=== PATIENT | female | born 1995 | race African-American/Black ===

== ENCOUNTER 2018-08-14 02:30 | Inpatient (IN) | payer OTHER, SELFPAY ==
[2018-08-14] VITALS (14 sets, daily range): BP systolic 134–179; BP diastolic 77–120; PULSE 71–124; RESP 12–22; TEMP 36.3–37; O2SAT 97–100; BMI 34.4
--- NOTE | 2018-08-14 02:50 | DI.RAD.S_ITS ---
PROCEDURE: XR ACUTE ABDOMEN SERIES INDICATIONS: Abdominal pain TECHNIQUE: One view chest and two views of the abdomen were acquired. COMPARISON: None. FINDINGS: Surgical changes and devices: None. Chest: Lungs are clear. Heart size is normal. No pleural effusions. No pneumoperitoneum. Abdomen: Bowel gas pattern is nonspecific with paucity of small bowel gas and distal colonic gas. Moderate amount of stool in proximal colon. No suspicious calcifications. Visualized solid organ contours appear normal. Bones: No suspicious bony lesions. IMPRESSION: Nonspecific bowel gas pattern. Dictated by: Tom Corey M.D. on 08/14/2018 at 8:43 Approved by: Tom Corey M.D. on 08/14/2018 at 8:44
--- NOTE | 2018-08-14 02:53 | ED.NAVMDI ---
HPI - Nausea/Vomiting/Diarrhea General Chief complaint: Nausea/Vomiting/Diarrhea Stated complaint: abdominal pain nausea vomiting Time Seen by Provider: 08/14/18 02:33 Source: patient Mode of arrival: ambulatory Limitations: no limitations History of Present Illness HPI Narrative: 22-year-old female nonsmoker with benign medical history presents with a chief complaint gradually worsening abdominal pain over the course of the day. She states that started this morning with some generalized abdominal cramping but is developed into severe epigastric discomfort over the course of this evening. She has had nausea vomiting and increased pain with any motion. She admits to some improvement with remaining still. She denies recent travel or use of antibiotics. She has never had the same. Patient drinks a few beers every other day MD complaint: nausea, vomiting and abdominal pain Onset (ago): hour(s) Description of Vomiting: food contents Description of Diarrhea: none Associated Abdominal Pain: Yes Location of pain: epigastric Severity: severe Quality: cramping and stabbing Pain Consistency: constant Relieving factors: none Exacerbating factors: movement Associated symptoms: diaphoresis and fever/chills Related Data Home Medications Medication Instructions Recorded Confirmed No Known Home Medications 08/14/18 08/14/18 Allergies Allergy/AdvReac Type Severity Reaction Status Date / Time No Known Drug Allergies Allergy Verified 08/14/18 02:45 Review of Systems Constitutional Denies chills, Denies fever(s), Denies lethargy and Denies weakness Eyes Denies change in vision, Denies eye discharge, Denies irritation and Denies loss of vision ENT Ears, Nose, Mouth, and Throat: Denies change in voice, Denies neck pain and Denies sore throat Cardiovascular Denies chest pain, Denies irregular heart rhythm, Denies lightheadedness, Denies palpitations, Denies dyspnea, Denies dyspnea on exertion and Denies orthopnea Respiratory Denies cough, Denies dyspnea, Denies dyspnea on exertion and Denies wheezing Gastrointestinal Gastrointestinal: Reports abdominal pain, Denies change in bowel habits, Denies diarrhea, Reports nausea and Reports vomiting Genitourinary Denies hematuria, Denies flank pain, Denies urinary incontinence and Denies urinary urgency Musculoskeletal Denies neck pain Integumentary/Breasts Denies pruritus, Denies erythema, Denies rash and Denies wounds Neurologic Denies confusion, Denies loss of vision and Denies weakness Psychiatric Denies anxiety, Denies confusion, Denies depression, Denies homicidal ideation and Denies suicidal ideation Endocrine Denies palpitations Hematologic/Lymphatic Denies easy bruising Allergic/Immunologic Denies wheezing [facility] Medical History Hypertension (Acute) Ruptured ovarian cyst (Acute) Surgical History Fractured fibula (Acute) Social History household members: significant other Smoking Status: Former smoker Social History household members: significant other Smoking Status: Former smoker Exam Narrative Exam Narrative: GENERAL: 22F is obviously quite uncomfortable, obese and diaphoretic, clutching her upper abdomen HEAD: Atraumatic. Normocephalic. No temporal or scalp tenderness. EYES: Pupils equal round and reactive. Extraocular motions intact. No scleral icterus. No injection or drainage. ENT: Nose without bleeding, purulent drainage or septal hematoma. Throat without erythema, tonsillar hypertrophy or exudate. Uvula midline. Airway patent. NECK: Trachea midline. No JVD or lymphadenopathy. Supple, nontender, no meningeal signs. CARDIOVASCULAR: Regular rate and rhythm without murmurs, gallops, or rubs. RESPIRATORY: Clear to auscultation. Breath sounds equal bilaterally. No wheezes, rales, or rhonchi. GASTROINTESTINAL: Abdomen soft, severe tenderness across the upper abdomen, nondistended. No hepato-splenomegaly, or palpable masses. No guarding. EXTREMITIES: No clubbing, cyanosis, or edema. No joint tenderness, effusion, or edema noted. BACK: Nontender without deformity or crepitance. No flank tenderness. NEURO: AOx3. SKIN: No rash or erythema. Initial Vital Signs Initial Vital Signs: Vital Signs Temperature 97.6 F 08/14/18 02:40 Pulse Rate 82 08/14/18 02:40 Respiratory Rate 22 08/14/18 02:40 Blood Pressure 153/111 H 08/14/18 02:40 Pulse Oximetry 100 08/14/18 02:40 Course Orders Ordered: ED Orders 08/14/18 17:20 Basic Metabolic Panel Routine Magnesium Routine 08/15/18 05:00 Basic Metabolic Panel DAILY Complete Blood Count AUTO DIFF DAILY Lipase DAILY 08/16/18 05:00 Basic Metabolic Panel DAILY Complete Blood Count AUTO DIFF DAILY Lipase DAILY 08/17/18 05:00 Basic Metabolic Panel DAILY 08/18/18 05:00 Basic Metabolic Panel DAILY Enoxaparin Sodium (Lovenox) 40 mg SUBCUT DAILY [facility] Last Admin: 08/14/18 07:56 Dose: 40 mg Hydromorphone HCl (Dilaudid) 1 mg IV Q3HR PRN PRN Reason: Pain, Moderate (4-6) Last Admin: 08/14/18 14:52 Dose: 1 mg Admin: 08/14/18 12:01 Dose: 1 mg Admin: 08/14/18 09:12 Dose: 1 mg Admin: 08/14/18 06:27 Dose: 1 mg Sodium Chloride (Normal Saline 0.9%) 1,000 mls @ 150 mls/hr IV CONT [facility] Last Admin: 08/14/18 10:44 Dose: 150 mls/hr Infusion: 08/14/18 10:44 Dose: 150 mls/hr Admin: 08/14/18 06:31 Dose: 150 mls/hr Influenza Virus Vaccine (Flu Vaccine) 0.5 ml IM .ONCE ONE Stop: 08/15/18 09:01 Labetalol HCl (Trandate) 100 mg PO BID [facility] Last Admin: 08/14/18 07:54 Dose: 100 mg Labetalol HCl (Trandate) 10 mg IV Q4HR PRN PRN Reason: Hypertension Naloxone HCl (Narcan) 0.2 mg IV Q2MIN PRN PRN Reason: Opiate Reversal Ondansetron HCl (Zofran) 4 mg IV Q6H [facility] Discontinued Medications Hydromorphone HCl (Dilaudid) 1 mg IV Q15M PRN PRN Reason: Pain, Severe (7-10) Last Admin: 08/14/18 04:48 Dose: 1 mg Admin: 08/14/18 03:50 Dose: 1 mg Admin: 08/14/18 03:15 Dose: 1 mg Hydromorphone HCl (Dilaudid) 1 mg IV NOW ONE Stop: 08/14/18 16:58 Last Admin: 08/14/18 16:30 Dose: 1 mg Sodium Chloride (Normal Saline 0.9%) 1,000 mls @ 1,000 mls/hr IV BOLUS ONE Stop: 08/14/18 03:47 Last Infusion: 08/14/18 05:11 Dose: 0 mls/hr Admin: 08/14/18 03:15 Dose: 1,000 mls/hr Sodium Chloride (Normal Saline 0.9%) 1,000 mls @ 1,000 mls/hr IV BOLUS ONE Stop: 08/14/18 06:29 Last Admin: 08/14/18 05:33 Dose: 1,000 mls/hr Influenza Virus Vaccine (Flu Vaccine) 0.5 ml IM .ONCE ONE Stop: 08/14/18 06:01 Last Admin: 08/14/18 11:48 Dose: Not Given Ondansetron HCl (Zofran) 4 mg IV NOW ONE Stop: 08/14/18 02:49 Last Admin: 08/14/18 03:15 Dose: 4 mg Ondansetron HCl (Zofran) 4 mg IV Q8HR PRN PRN Reason: Nausea And Vomiting Last Admin: 08/14/18 06:27 Dose: 4 mg Ondansetron HCl (Zofran) 4 mg IV Q6HR [facility] Last Admin: 08/14/18 14:52 Dose: 4 mg Vital Signs - 8 hr 08/14/18 12:00 08/14/18 16:00 08/14/18 16:11 Temperature 98.2 F 98.1 F Pulse Rate 77 71 Respiratory Rate 16 18 Blood Pressure 151/97 H 146/98 H Pulse Oximetry 100 97 100 MDM - Nausea/Vomiting/Diarrhea Lab Data Result diagrams: 08/14/18 03:10 08/14/18 17:20 Lab Results 08/14/18 08/14/18 08/14/18 Range/Units 03:10 03:10 03:25 WBC 12.5 H (4.5-11.0) X10^3/uL RBC 5.65 H (4.0-5.2) X10^6/uL Hgb 17.8 H (12.0-16.0) g/dL Hct 51.8 H (36-46) % MCV 91.7 (80-100) fL MCH 31.6 (26-34) PG MCHC 34.4 (30-36) % RDW 12.8 (11.6-14.8) % Plt Count 314 (150-400) X10^3/uL Neut % (Auto) 84.7 H (50-75) % Lymph % (Auto) 9.1 L (25-40) % [place] % (Auto) 4.6 (3-14) % Eos % (Auto) 1.3 L (2-4) % Baso % (Auto) 0.3 (0-2) % Neut # (Auto) 83978 H (8070-7405) /uL Lymph # (Auto) 1100 (5000-8626) /uL [place] # (Auto) 600 (0-900) /uL Eos # (Auto) 200 (0-450) /uL Baso # (Auto) 0 (0-100) /uL Sodium 136 L (137-145) mmol/L Potassium 3.5 (3.4-5.1) mmol/L Chloride 96 L (98-107) mmol/L Carbon Dioxide 25 (22-32) mmol/L BUN 10 (7-17) mg/dL Creatinine 0.80 (0.52-1.04) mg/dL Estimated GFR > 60.0 (>60) mL/min BUN/Creatinine Ratio 12.5 (6-22) Glucose 162 H (70-100) mg/dL Hemoglobin A1c (4.0-6.0) % Calcium 9.6 (8.4-10.2) mg/dL Magnesium (1.6-2.3) mg/dL Total Bilirubin 1.0 (0.2-1.3) mg/dL AST 63 H (14-36) IU/L ALT 70 H (9-52) IU/L Alkaline Phosphatase 121 (38-126) U/L Total Protein 9.1 H (6.3-8.2) g/dL Albumin 5.0 (3.5-5.0) g/dL Globulin 4.1 (1.7-4.1) g/dL Albumin/Globulin Ratio 1.2 (1.0-2.8) Triglycerides (35-150) mg/dL Cholesterol (140-199) mg/dL LDL Cholesterol, Calc (<100) mg/dL HDL Cholesterol (40-60) mg/dL Lipase 30296 H (23-300) U/L Urine RBC None seen (0-5/HPF) Urine WBC 0-1/hpf (0-5/HPF) Ur Squamous Epith Cells 0-1 /hpf Urine Bacteria Moderate (10-30) H (None) Hyaline Casts 1-5/lpf (None) Urine Mucus 2+ H (Negative) Ur Culture Indicated? Cult not indicated 08/14/18 08/14/18 08/14/18 Range/Units 08:33 08:33 17:20 WBC (4.5-11.0) X10^3/uL RBC (4.0-5.2) X10^6/uL Hgb (12.0-16.0) g/dL Hct (36-46) % MCV (80-100) fL MCH (26-34) PG MCHC (30-36) % RDW (11.6-14.8) % Plt Count (150-400) X10^3/uL Neut % (Auto) (50-75) % Lymph % (Auto) (25-40) % [place] % (Auto) (3-14) % Eos % (Auto) (2-4) % Baso % (Auto) (0-2) % Neut # (Auto) (0682-7193) /uL Lymph # (Auto) (4662-2209) /uL [place] # (Auto) (0-900) /uL Eos # (Auto) (0-450) /uL Baso # (Auto) (0-100) /uL Sodium 134 L (137-145) mmol/L Potassium 3.6 (3.4-5.1) mmol/L Chloride 101 (98-107) mmol/L Carbon Dioxide 24 (22-32) mmol/L BUN 8 (7-17) mg/dL Creatinine 0.50 L (0.52-1.04) mg/dL Estimated GFR > 60.0 (>60) mL/min BUN/Creatinine Ratio 16.0 (6-22) Glucose 114 H (70-100) mg/dL Hemoglobin A1c 4.8 (4.0-6.0) % Calcium 7.9 L (8.4-10.2) mg/dL Magnesium 1.8 (1.6-2.3) mg/dL Total Bilirubin (0.2-1.3) mg/dL AST (14-36) IU/L ALT (9-52) IU/L Alkaline Phosphatase (38-126) U/L Total Protein (6.3-8.2) g/dL Albumin (3.5-5.0) g/dL Globulin (1.7-4.1) g/dL Albumin/Globulin Ratio (1.0-2.8) Triglycerides 171 H (35-150) mg/dL Cholesterol 224 H (140-199) mg/dL LDL Cholesterol, Calc 111 H (<100) mg/dL HDL Cholesterol 79 H (40-60) mg/dL Lipase (23-300) U/L Urine RBC (0-5/HPF) Urine WBC (0-5/HPF) Ur Squamous Epith Cells Urine Bacteria (None) Hyaline Casts (None) Urine Mucus (Negative) Ur Culture Indicated? Point of Care Testing Test Results Negative Urine Dip Bedside Urine Glucose Negative Bedside Urine Bilirubin - Negative Bedside Urine Ketone ++ 40 Urine Specific [place] 1.025 Bedside Urine Occult Blood - Negative Bedside Urine pH 6 Bedside Urine Protein + 30 Bedside Urine Urobilinogen - Negative Bedside Urine Nitrite - Negative Bedside Urine Leukocytes - Negative Esterase Imaging Data US - abdomen: Radiologist's impression: [place] [address] Ultrasound Report Signed Patient: Yasmine Pinzon KMR#: [id number] : 1995Acct:[id number] Age/Sex: 22 / FDate of Service: 08/14/18 Loc: FR919-8 Accession Number: [id number] Procedure: US abdomen complete Ordering Provider: Shaq Chavarria D.O. PROCEDURE: US ABDOMEN COMPLETE INDICATIONS: EPIGASTRIC PAIN; ELEVATED LIPASE TECHNIQUE: Real-time scanning was performed of the abdominal and retroperitoneal organs, with image documentation. COMPARISON: None. FINDINGS: Liver: Liver is normal in size and demonstrates diffuse increased echotexture. Gallbladder: No gallstones. No gallbladder wall thickening, pericholecystic fluid or sonographic Koroma's sign. Biliary ducts: Intrahepatic bile ducts are non-dilated. Extrahepatic bile duct caliber measures 5.1 mm. Normal is 6-7 mm or less in diameter, or 10 mm or less post-cholecystectomy. Pancreas: Visualized portions of the pancreas are sonographically normal. Spleen: Spleen is normal in size and homogeneous in echotexture. Kidneys: Kidneys are normal in size and echotexture. Right kidney measures 12.1 cm long; left kidney measures 11.5 cm long. No hydronephrosis or nephrolithiasis. No solid masses. Aorta: Visualized aorta is normal in caliber at less than 3 cm. Iliacs: Proximal common iliac arteries are obscured by overlying bowel gas. IVC: Intrahepatic inferior vena cava is patent. Miscellaneous: No free abdominal fluid. IMPRESSION: 1. Diffusely increased hepatic echotexture. This finding is most likely secondary to hepatic fatty infiltration although other hepatocellular disease may have a similar appearance. Recommend clinical correlation. Dictated by: Tom Corey M.D. on 08/14/2018 at 9:06 Approved by: Tom Corey M.D. on 08/14/2018 at 9:07 CT scan - abdomen: Radiologist's impression: [facility] DATE TYPE STATUS AUTHOR Hx 08/14/18 04:00 Ernie Corey 08/14/18 03:38 Ernie Corey 08/14/18 02:50 Ernie CoreyYasmine Sue Feliberto, F1995 [facility] [place], 227 -1 170.18cm 99.79kg BMI: 34.5kg/m? Search Chart ONSET Today 16:11 JeromyYasmine Sue 22 F 1995 [place] [address] CT Scan Report Signed Patient: Yasmine Pinzon KMR#: [id number] : 1995Acct:[id number] Age/Sex: 22 / FDate of Service: 08/14/18 Loc: II731-4 Accession Number: [id number] Procedure: CT abdomen pelvis w con Ordering Provider: Shaq Chavarria D.O. PROCEDURE: CT ABDOMEN PELVIS W CON INDICATIONS: severe epigastric pain, vomiting TECHNIQUE: After the administration of intravenous contrast, 5 mm thick sections acquired from the diaphragm to the symphysis. 5 mm coronal and sagittal reformats were acquired. For radiation dose reduction, the following was used: automated exposure control, adjustment of mA and/or kV according to patient size. COMPARISON: [facility], , US ABDOMEN COMPLETE, 08/14/2018, 4:48. FINDINGS: Image quality: Excellent. ABDOMEN: Lung bases: Lung bases are clear. Heart size is normal. Solid organs: There is peripancreatic stranding and a small amount of ascites around the pancreas consistent with acute pancreatitis. There is diffuse hepatic fatty infiltration. A 1.8 x 2.6 cm hypodensity in the left hepatic lobe adjacent to the falciform ligament is compatible with focal fat. Liver is normal in size and enhancement. Gallbladder is normal. Biliary system is non dilated. Spleen is normal in size and enhancement. No adrenal nodules. Kidneys demonstrate normal size and enhancement, without hydronephrosis. Peritoneum and bowel: Bowel loops demonstrate normal wall thickness and caliber. A few colonic diverticula are noted in transverse colon. Normal appendix. No free fluid or air. Nodes and vessels: No retroperitoneal or mesenteric adenopathy by size criteria. Aorta and inferior vena cava are normal in size. Miscellaneous: No ventral hernias. PELVIS: Genitourinary: Bladder wall thickness is normal. Uterus is normal. There is a 2 cm cyst in the left ovary, presumably a dominant follicle. Right ovary is unremarkable. There is a small amount of free fluid in the cul-de-sac. Miscellaneous: No inguinal hernias or adenopathy. Bones: No suspicious bony lesions. No vertebral body compression fractures. IMPRESSION: 1. There is peripancreatic stranding and a small amount of ascites around the pancreas consistent with acute pancreatitis. 2. Hepatic steatosis. 3. Mild diverticulosis without acute diverticulitis. Dictated by: Tom Corey M.D. on 08/14/2018 at 8:35 Approved by: Tom Corey M.D. on 08/14/2018 at 8:40 [facility] Narrative Medical decision making narrative: 22-year-old regular drinker presents with severe epigastric pain. Initial considerations were certainly of pancreatitis and gallbladder disease but lack of radiation to her back and symptoms across much of her upper abdomen and even left lower created a slightly cloudy picture. In the end it is clear she has isolated pancreatitis in the absence biliary disease, the likely etiology being alcohol. Patient requires hospitalization as she has required 3 doses of IV pain meds and will not tolerate oral medications or hydration. Discharge Plan Departure Patient Disposition: Admitted As Inpatient Clinical Impression: Acute pancreatitis Qualifiers: Pancreatitis type: alcohol induced Acute pancreatitis complication: unspecified Qualified Code(s): K85.20 - Alcohol induced acute pancreatitis without necrosis or infection Discharge Date/Time: 08/14/18 05:59 Interventions: ED Discharge Assessment Last Done: 08/14/18 05:55 Admit Date/Time: 08/14/18 05:32 Admit Provider: Hayes Hyde
--- NOTE | 2018-08-14 03:00 | ED_ITS ---
HPI - Nausea/Vomiting/Diarrhea General Chief complaint: Nausea/Vomiting/Diarrhea Stated complaint: abdominal pain nausea vomiting Time Seen by Provider: 08/14/18 02:33 Source: patient Mode of arrival: ambulatory Limitations: no limitations History of Present Illness HPI Narrative: 22-year-old female nonsmoker with benign medical history presents with a chief complaint gradually worsening abdominal pain over the course of the day. She states that started this morning with some generalized abdominal cramping but is developed into severe epigastric discomfort over the course of this evening. She has had nausea vomiting and increased pain with any motion. She admits to some improvement with remaining still. She denies recent travel or use of antibiotics. She has never had the same. Patient drinks a few beers every other day MD complaint: nausea, vomiting and abdominal pain Onset (ago): hour(s) Description of Vomiting: food contents Description of Diarrhea: none Associated Abdominal Pain: Yes Location of pain: epigastric Severity: severe Quality: cramping and stabbing Pain Consistency: constant Relieving factors: none Exacerbating factors: movement Associated symptoms: diaphoresis and fever/chills Related Data Home Medications Medication Instructions Recorded Confirmed No Known Home Medications 08/14/18 08/14/18 Allergies Allergy/AdvReac Type Severity Reaction Status Date / Time No Known Drug Allergies Allergy Verified 08/14/18 02:45 Review of Systems Constitutional Denies chills, Denies fever(s), Denies lethargy and Denies weakness Eyes Denies change in vision, Denies eye discharge, Denies irritation and Denies loss of vision ENT Ears, Nose, Mouth, and Throat: Denies change in voice, Denies neck pain and Denies sore throat Cardiovascular Denies chest pain, Denies irregular heart rhythm, Denies lightheadedness, Denies palpitations, Denies dyspnea, Denies dyspnea on exertion and Denies orthopnea Respiratory Denies cough, Denies dyspnea, Denies dyspnea on exertion and Denies wheezing Gastrointestinal Gastrointestinal: Reports abdominal pain, Denies change in bowel habits, Denies diarrhea, Reports nausea and Reports vomiting Genitourinary Denies hematuria, Denies flank pain, Denies urinary incontinence and Denies urinary urgency Musculoskeletal Denies neck pain Integumentary/Breasts Denies pruritus, Denies erythema, Denies rash and Denies wounds Neurologic Denies confusion, Denies loss of vision and Denies weakness Psychiatric Denies anxiety, Denies confusion, Denies depression, Denies homicidal ideation and Denies suicidal ideation Endocrine Denies palpitations Hematologic/Lymphatic Denies easy bruising Allergic/Immunologic Denies wheezing [facility] Medical History Hypertension (Acute) Ruptured ovarian cyst (Acute) Surgical History Fractured fibula (Acute) Social History household members: significant other Smoking Status: Former smoker Social History household members: significant other Smoking Status: Former smoker Exam Narrative Exam Narrative: GENERAL: 22F is obviously quite uncomfortable, obese and di aphoretic, clutching her upper abdomen HEAD: Atraumatic. Normocephalic. No temporal or scalp tenderness. EYES: Pupils equal round and reactive. Extraocular motions intact. No scleral icterus. No injection or drainage. ENT: Nose without bleeding, purulent drainage or septal hematoma. Throat without erythema, tonsillar hypertrophy or exudate. Uvula midline. Airway patent. NECK: Trachea midline. No JVD or lymphadenopathy. Supple, nontender, no meningeal signs. CARDIOVASCULAR: Regular rate and rhythm without murmurs, gallops, or rubs. RESPIRATORY: Clear to auscultation. Breath sounds equal bilaterally. No wheezes, rales, or rhonchi. GASTROINTESTINAL: Abdomen soft, severe tenderness across the upper abdomen, nondistended. No hepato-splenomegaly, or palpable masses. No guarding. EXTREMITIES: No clubbing, cyanosis, or edema. No joint tenderness, effusion, or edema noted. BACK: Nontender without deformity or crepitance. No flank tenderness. NEURO: AOx3. SKIN: No rash or erythema. Initial Vital Signs Initial Vital Signs: Vital Signs Temperature 97.6 F 08/14/18 02:40 Pulse Rate 82 08/14/18 02:40 Respiratory Rate 22 08/14/18 02:40 Blood Pressure 153/111 H 08/14/18 02:40 Pulse Oximetry 100 08/14/18 02:40 Course Orders Ordered: ED Orders 08/14/18 17:20 Basic Metabolic Panel Routine Magnesium Routine 08/15/18 05:00 Basic Metabolic Panel DAILY Complete Blood Count AUTO DIFF DAILY Lipase DAILY 08/16/18 05:00 Basic Metabolic Panel DAILY Complete Blood Count AUTO DIFF DAILY Lipase DAILY 08/17/18 05:00 Basic Metabolic Panel DAILY 08/18/18 05:00 Basic Metabolic Panel DAILY Enoxaparin Sodium (Lovenox) 40 mg SUBCUT DAILY [facility] Last Admin: 08/14/18 07:56 Dose: 40 mg Hydromorphone HCl (Dilaudid) 1 mg IV Q3HR PRN PRN Reason: Pain, Moderate (4-6) Last Admin: 08/14/18 14:52 Dose: 1 mg Admin: 08/14/18 12:01 Dose: 1 mg Admin: 08/14/18 09:12 Dose: 1 mg Admin: 08/14/18 06:27 Dose: 1 mg Sodium Chloride (Normal Saline 0.9%) 1,000 mls @ 150 mls/hr IV CONT [facility] Last Admin: 08/14/18 10:44 Dose: 150 mls/hr Infusion: 08/14/18 10:44 Dose: 150 mls/hr Admin: 08/14/18 06:31 Dose: 150 mls/hr Influenza Virus Vaccine (Flu Vaccine) 0.5 ml IM .ONCE ONE Stop: 08/15/18 09:01 Labetalol HCl (Trandate) 100 mg PO BID [facility] Last Admin: 08/14/18 07:54 Dose: 100 mg Labetalol HCl (Trandate) 10 mg IV Q4HR PRN PRN Reason: Hypertension Naloxone HCl (Narcan) 0.2 mg IV Q2MIN PRN PRN Reason: Opiate Reversal Ondansetron HCl (Zofran) 4 mg IV Q6H [facility] Discontinued Medications Hydromorphone HCl (Dilaudid) 1 mg IV Q15M PRN PRN Reason: Pain, Severe (7-10) Last Admin: 08/14/18 04:48 Dose: 1 mg Admin: 08/14/18 03:50 Dose: 1 mg Admin: 08/14/18 03:15 Dose: 1 mg Hydromorphone HCl (Dilaudid) 1 mg IV NOW ONE Stop: 08/14/18 16:58 Last Admin: 08/14/18 16:30 Dose: 1 mg Sodium Chloride (Normal Saline 0.9%) 1,000 mls @ 1,000 mls/hr IV BOLUS ONE Stop: 08/14/18 03:47 Last Infusion: 08/14/18 05:11 Dose: 0 mls/hr Admin: 08/14/18 03:15 Dose: 1,000 mls/hr Sodium Chloride (Normal Saline 0.9%) 1,000 mls @ 1,000 mls/hr IV BOLUS ONE Stop: 08/14/18 06:29 Last Admin: 08/14/18 05:33 Dose: 1,000 mls/hr Influenza Virus Vaccine (Flu Vaccine) 0.5 ml IM .ONCE ONE Stop: 08/14/18 06:01 Last Admin: 08/14/18 11:48 Dose: Not Given Ondansetron HCl (Zofran) 4 mg IV NOW ONE Stop: 08/14/18 02:49 Last Admin: 08/14/18 03:15 Dose: 4 mg Ondansetron HCl (Zofran) 4 mg IV Q8HR PRN PRN Reason: Nausea And Vomiting Last Admin: 08/14/18 06:27 Dose: 4 mg Ondansetron HCl (Zofran) 4 mg IV Q6HR [facility] Last Admin: 08/14/18 14:52 Dose: 4 mg Vital Signs - 8 hr 08/14/18 12:00 08/14/18 16:00 08/14/18 16:11 Temperature 98.2 F 98.1 F Pulse Rate 77 71 Respiratory Rate 16 18 Blood Pressure 151/97 H 146/98 H Pulse Oximetry 100 97 100 MDM - Nausea/Vomiting/Diarrhea Lab Data Result diagrams: 08/14/18 03:10 08/14/18 17:20 Lab Results 08/14/18 08/14/18 08/14/18 Range/Units 03:10 03:10 03:25 WBC 12.5 H (4.5-11.0) X10^3/uL RBC 5.65 H (4.0-5.2) X10^6/uL Hgb 17.8 H (12.0-16.0) g/dL Hct 51.8 H (36-46) % MCV 91.7 (80-100) fL MCH 31.6 (26-34) PG MCHC 34.4 (30-36) % RDW 12.8 (11.6-14.8) % Plt Count 314 (150-400) X10^3/uL Neut % (Auto) 84.7 H (50-75) % Lymph % (Auto) 9.1 L (25-40) % Cascade % (Auto) 4.6 (3-14) % Eos % (Auto) 1.3 L (2-4) % Baso % (Auto) 0.3 (0-2) % Neut # (Auto) 02301 H (8288-9896) /uL Lymph # (Auto) 1100 (4449-1694) /uL Cascade # (Auto) 600 (0-900) /uL Eos # (Auto) 200 (0-450) /uL Baso # (Auto) 0 (0-100) /uL Sodium 136 L (137-145) mmol/L Potassium 3.5 (3.4-5.1) mmol/L Chloride 96 L (98-107) mmol/L Carbon Dioxide 25 (22-32) mmol/L BUN 10 (7-17) mg/dL Creatinine 0.80 (0.52-1.04) mg/dL Estimated GFR > 60.0 (>60) mL/min BUN/Creatinine Ratio 12.5 (6-22) Glucose 162 H (70-100) mg/dL Hemoglobin A1c (4.0-6.0) % Calcium 9.6 (8.4-10.2) mg/dL Magnesium (1.6-2.3) mg/dL Total Bilirubin 1.0 (0.2-1.3) mg/dL AST 63 H (14-36) IU/L ALT 70 H (9-52) IU/L Alkaline Phosphatase 121 (38-126) U/L Total Protein 9.1 H (6.3-8.2) g/dL Albumin 5.0 (3.5-5.0) g/dL Globulin 4.1 (1.7-4.1) g/dL Albumin/Globulin Ratio 1.2 (1.0-2.8) Triglycerides (35-150) mg/dL Cholesterol (140-199) mg/dL LDL Cholesterol, Calc (<100) mg/dL HDL Cholesterol (40-60) mg/dL Lipase 73080 H (23-300) U/L Urine RBC None seen (0-5/HPF) Urine WBC 0-1/hpf (0-5/HPF) Ur Squamous Epith Cells 0-1 /hpf Urine Bacteria Moderate (10-30) H (None) Hyaline Casts 1-5/lpf (None) Urine Mucus 2+ H (Negative) Ur Culture Indicated? Cult not indicated 08/14/18 08/14/18 08/14/18 Range/Units 08:33 08:33 17:20 WBC (4.5-11.0) X10^3/uL RBC (4.0-5.2) X10^6/uL Hgb (12.0-16.0) g/dL Hct (36-46) % MCV (80-100) fL MCH (26-34) PG MCHC (30-36) % RDW (11.6-14.8) % Plt Count (150-400) X10^3/uL Neut % (Auto) (50-75) % Lymph % (Auto) (25-40) % Cascade % (Auto) (3-14) % Eos % (Auto) (2-4) % Baso % (Auto) (0-2) % Neut # (Auto) (2909-6134) /uL Lymph # (Auto) (6024-7009) /uL Cascade # (Auto) (0-900) /uL Eos # (Auto) (0-450) /uL Baso # (Auto) (0-100) /uL Sodium 134 L (137-145) mmol/L Potassium 3.6 (3.4-5.1) mmol/L Chloride 101 (98-107) mmol/L Carbon Dioxide 24 (22-32) mmol/L BUN 8 (7-17) mg/dL Creatinine 0.50 L (0.52-1.04) mg/dL Estimated GFR > 60.0 (>60) mL/min BUN/Creatinine Ratio 16.0 (6-22) Glucose 114 H (70-100) mg/dL Hemoglobin A1c 4.8 (4.0-6.0) % Calcium 7.9 L (8.4-10.2) mg/dL Magnesium 1.8 (1.6-2.3) mg/dL Total Bilirubin (0.2-1.3) mg/dL AST (14-36) IU/L ALT (9-52) IU/L Alkaline Phosphatase (38-126) U/L Total Protein (6.3-8.2) g/dL Albumin (3.5-5.0) g/dL Globulin (1.7-4.1) g/dL Albumin/Globulin Ratio (1.0-2.8) Triglycerides 171 H (35-150) mg/dL Cholesterol 224 H (140-199) mg/dL LDL Cholesterol, Calc 111 H (<100) mg/dL HDL Cholesterol 79 H (40-60) mg/dL Lipase (23-300) U/L Urine RBC (0-5/HPF) Urine WBC (0-5/HPF) Ur Squamous Epith Cells Urine Bacteria (None) Hyaline Casts (None) Urine Mucus (Negative) Ur Culture Indicated? Point of Care Testing Test Results Negative Urine Dip Bedside Urine Glucose Negative Bedside Urine Bilirubin - Negative Bedside Urine Ketone ++ 40 Urine Specific Hamilton 1.025 Bedside Urine Occult Blood - Negative Bedside Urine pH 6 Bedside Urine Protein + 30 Bedside Urine Urobilinogen - Negative Bedside Urine Nitrite - Negative Bedside Urine Leukocytes - Negative Esterase Imaging Data US - abdomen: Radiologist's impression: [place] [address] Ultrasound Report Signed Patient: Yasmine Pinzon KMR#: [id number] : 1995Acct:[id number] Age/Sex: 22 / FDate of Service: 08/14/18 Loc: VE775-8 Accession Number: [id number] Procedure: US abdomen complete Ordering Provider: Shaq Chavarria D.O. PROCEDURE: US ABDOMEN COMPLETE INDICATIONS: EPIGASTRIC PAIN; ELEVATED LIPASE TECHNIQUE: Real-time scanning was performed of the abdominal and retroperitoneal organs, with image documentation. COMPARISON: None. FINDINGS: Liver: Liver is normal in size and demonstrates diffuse increased echotexture. Gallbladder: No gallstones. No gallbladder wall thickening, pericholecystic fluid or sonographic Koroma's sign. Biliary ducts: Intrahepatic bile ducts are non-dilated. Extrahepatic bile duct caliber measures 5.1 mm. Normal is 6-7 mm or less in diameter, or 10 mm or less post-cholecystectomy. Pancreas: Visualized portions of the pancreas are sonographically normal. Spleen: Spleen is normal in size and homogeneous in echotexture. Kidneys: Kidneys are normal in size and echotexture. Right kidney measures 12.1 cm long; left kidney measures 11.5 cm long. No hydronephrosis or nephrolithiasis. No solid masses. Aorta: Visualized aorta is normal in caliber at less than 3 cm. Iliacs: Proximal common iliac arteries are obscured by overlying bowel gas. IVC: Intrahepatic inferior vena cava is patent. Miscellaneous: No free abdominal fluid. IMPRESSION: 1. Diffusely increased hepatic echotexture. This finding is most likely secondary to hepatic fatty infiltration although other hepatocellular disease may have a similar appearance. Recommend clinical correlation. Dictated by: Tom Corey M.D. on 08/14/2018 at 9:06 Approved by: Tom Corey M.D. on 08/14/2018 at 9:07 CT scan - abdomen: Radiologist's impression: [facility] DATE TYPE STATUS AUTHOR Hx 08/14/18 04:00 Ernie Corey 08/14/18 03:38 Ernie Corey 08/14/18 02:50 Ernie CoreyYasmine Sue Feliberto, F1995 [facility] [place], 227 -1 170.18cm 99.79kg BMI: 34.5kg/m? Search Chart ONSET Today 16:11 JeromyYasmine Sue 22 F 1995 [place] [address] CT Scan Report Signed Patient: Yasmine Pinzon KMR#: [id number] : 1995Acct:[id number] Age/Sex: 22 / FDate of Service: 08/14/18 Loc: VG667-2 Accession Number: [id number] Procedure: CT abdomen pelvis w con Ordering Provider: Shaq Chavarria D.O. PROCEDURE: CT ABDOMEN PELVIS W CON INDICATIONS: severe epigastric pain, vomiting TECHNIQUE: After the administration of intravenous contrast, 5 mm thick sections acquired from the diaphragm to the symphysis. 5 mm coronal and sagittal reformats were acquired. For radiation dose reduction, the following was used: automated exposure control, adjustment of mA and/or kV according to patient size. COMPARISON: [facility], , US ABDOMEN COMPLETE, 08/14/2018, 4:48. FINDINGS: Image quality: Excellent. ABDOMEN: Lung bases: Lung bases are clear. Heart size is normal. Solid organs: There is peripancreatic stranding and a small amount of ascites around the pancreas consistent with acute pancreatitis. There is diffuse hepatic fatty infiltration. A 1.8 x 2.6 cm hypodensity in the left hepatic lobe adjacent to the falciform ligament is compatible with focal fat. Liver is normal in size and enhancement. Gallbladder is normal. Biliary system is non dilated. Spleen is normal in size and enhancement. No adrenal nodules. Kidneys demonstrate normal size and enhancement, without hydronephrosis. Peritoneum and bowel: Bowel loops demonstrate normal wall thickness and caliber. A few colonic diverticula are noted in transverse colon. Normal appendix. No free fluid or air. Nodes and vessels: No retroperitoneal or mesenteric adenopathy by size criteria. Aorta and inferior vena cava are normal in size. Miscellaneous: No ventral hernias. PELVIS: Genitourinary: Bladder wall thickness is normal. Uterus is normal. There is a 2 cm cyst in the left ovary, presumably a dominant follicle. Right ovary is unremarkable. There is a small amount of free fluid in the cul-de-sac. Miscellaneous: No inguinal hernias or adenopathy. Bones: No suspicious bony lesions. No vertebral body compression fractures. IMPRESSION: 1. There is peripancreatic stranding and a small amount of ascites around the pancreas consistent with acute pancreatitis. 2. Hepatic steatosis. 3. Mild diverticulosis without acute diverticulitis. Dictated by: Tom Corey M.D. on 08/14/2018 at 8:35 Approved by: Tom Corey M.D. on 08/14/2018 at 8:40 MDM Narrative Medical decision making narrative: 22-year-old regular drinker presents with severe epigastric pain. Initial considerations were certainly of pancreatitis and gallbladder disease but lack of radiation to her back and symptoms across much of her upper abdomen and even left lower created a slightly cloudy picture. In the end it is clear she has isolated pancreatitis in the absence biliary disease, the likely etiology being alcohol. Patient requires hospitalization as she has required 3 doses of IV pain meds and will not tolerate oral medications or hydration. Discharge Plan Departure Patient Disposition: Admitted As Inpatient Clinical Impression: Acute pancreatitis Qualifiers: Pancreatitis type: alcohol induced Acute pancreatitis complication: unspecified Qualified Code(s): K85.20 - Alcohol induced acute pancreatitis without necrosis or infection Discharge Date/Time: 08/14/18 05:59 Interventions: ED Discharge Assessment Last Done: 08/14/18 05:55 Admit Date/Time: 08/14/18 05:32 Admit Provider: Hayes Hyde
[2018-08-14] MEDS: HYDROMORPHONE 1 MG INJ IV ×10 (03:15→22:15)
[2018-08-14] MEDS: ONDANSETRON 4 MG/2 ML INJ IV ×4 (03:15→19:36)
[2018-08-14] MEDS: SODIUM CHLORIDE 0.9% 1,000 ML 1000 ML IV ×2 (03:15→05:33)
[2018-08-14 03:26] LABS: Add Manual Diff / Slide Review NO; Basophils Absolute Auto 0 /uL (0-100); Basophils Percent Auto 0.3 % (0-2); Eosinophils Absolute Auto 200 /uL (0-450); Eosinophils Percent Auto 1.3 % (2-4); Hemoglobin 17.8 g/dL (12.0-16.0); Lymphocytes Absolute Auto 1100 /uL (1100-4500); Lymphocytes Percent Auto 9.1 % (25-40); Mean Corpuscular HGB Conc 34.4 % (30-36); Mean Corpuscular Hemoglobin 31.6 PG (26-34); Mean Corpuscular Volume 91.7 fL (80-100); Monocytes Absolute Auto 600 /uL (0-900); Monocytes Percent Auto 4.6 % (3-14); Neutrophils Absolute Auto 10600 /uL (1500-7000); Neutrophils Percent Auto 84.7 % (50-75); Platelet Count 314 X10^3/uL (150-400); Red Blood Cell Count 5.65 X10^6/uL (4.0-5.2); Red Cell Distribution Width 12.8 % (11.6-14.8); White Blood Cell Count 12.5 X10^3/uL (4.5-11.0)
[2018-08-14 03:30] LABS: Hematocrit 51.8 % (36-46)
[2018-08-14 03:36] LABS: Alanine Aminotransferase 70 IU/L (9-52); Albumin Globulin Ratio 1.2 (1.0-2.8); Alkaline Phosphatase 121 U/L (38-126); Aspartate Aminotransferase 63 IU/L (14-36); BUN Creatinine Ratio 12.5 (6-22); Blood Urea Nitrogen 10 mg/dL (7-17); Calcium 9.6 mg/dL (8.4-10.2); Carbon Dioxide 25 mmol/L (22-32); Chloride 96 mmol/L (98-107); Estimated Glomerular Filt Rate > 60.0 mL/min (>60); Globulin 4.1 g/dL (1.7-4.1); Glucose 162 mg/dL (70-100); HEMOLYSIS < 15 (0-50); Potassium 3.5 mmol/L (3.4-5.1); Sodium 136 mmol/L (137-145); Total Protein 9.1 g/dL (6.3-8.2)
--- NOTE | 2018-08-14 03:38 | DI.CT.S_ITS ---
PROCEDURE: CT ABDOMEN PELVIS W CON INDICATIONS: severe epigastric pain, vomiting TECHNIQUE: After the administration of intravenous contrast, 5 mm thick sections acquired from the diaphragm to the symphysis. 5 mm coronal and sagittal reformats were acquired. For radiation dose reduction, the following was used: automated exposure control, adjustment of mA and/or kV according to patient size. COMPARISON: [facility], , US ABDOMEN COMPLETE, 08/14/2018, 4:48. FINDINGS: Image quality: Excellent. ABDOMEN: Lung bases: Lung bases are clear. Heart size is normal. Solid organs: There is peripancreatic stranding and a small amount of ascites around the pancreas consistent with acute pancreatitis. There is diffuse hepatic fatty infiltration. A 1.8 x 2.6 cm hypodensity in the left hepatic lobe adjacent to the falciform ligament is compatible with focal fat. Liver is normal in size and enhancement. Gallbladder is normal. Biliary system is non dilated. Spleen is normal in size and enhancement. No adrenal nodules. Kidneys demonstrate normal size and enhancement, without hydronephrosis. Peritoneum and bowel: Bowel loops demonstrate normal wall thickness and caliber. A few colonic diverticula are noted in transverse colon. Normal appendix. No free fluid or air. Nodes and vessels: No retroperitoneal or mesenteric adenopathy by size criteria. Aorta and inferior vena cava are normal in size. Miscellaneous: No ventral hernias. PELVIS: Genitourinary: Bladder wall thickness is normal. Uterus is normal. There is a 2 cm cyst in the left ovary, presumably a dominant follicle. Right ovary is unremarkable. There is a small amount of free fluid in the cul-de-sac. Miscellaneous: No inguinal hernias or adenopathy. Bones: No suspicious bony lesions. No vertebral body compression fractures. IMPRESSION: 1. There is peripancreatic stranding and a small amount of ascites around the pancreas consistent with acute pancreatitis. 2. Hepatic steatosis. 3. Mild diverticulosis without acute diverticulitis. Dictated by: Tom Corey M.D. on 08/14/2018 at 8:35 Approved by: Tom Corey M.D. on 08/14/2018 at 8:40
[2018-08-14 03:41] LABS: RBC Urine None Seen (0-5/HPF)
[2018-08-14 03:49] LABS: Bacteria Urine Moderate (10-30); Culture Indicated Urine Cult Not Indicated; Hyaline Casts Urine 1-5/LPF; Mucus Urine 2+ (Negative); Squamous Epithelial Cell Urine 0-1 /HPF; WBC Urine 0-1/HPF (0-5/HPF)
--- NOTE | 2018-08-14 03:53 | PC.NURSE ---
Pt reports first dose of dilaudid took the edge off and made me stop shaking. Pain level continues to be a 9/10. second dose given.
[2018-08-14 03:55] LABS: Lipase 12712 U/L (23-300)
--- NOTE | 2018-08-14 04:00 | DI.US.S_ITS ---
PROCEDURE: US ABDOMEN COMPLETE INDICATIONS: EPIGASTRIC PAIN; ELEVATED LIPASE TECHNIQUE: Real-time scanning was performed of the abdominal and retroperitoneal organs, with image documentation. COMPARISON: None. FINDINGS: Liver: Liver is normal in size and demonstrates diffuse increased echotexture. Gallbladder: No gallstones. No gallbladder wall thickening, pericholecystic fluid or sonographic Koroma's sign. Biliary ducts: Intrahepatic bile ducts are non-dilated. Extrahepatic bile duct caliber measures 5.1 mm. Normal is 6-7 mm or less in diameter, or 10 mm or less post-cholecystectomy. Pancreas: Visualized portions of the pancreas are sonographically normal. Spleen: Spleen is normal in size and homogeneous in echotexture. Kidneys: Kidneys are normal in size and echotexture. Right kidney measures 12.1 cm long; left kidney measures 11.5 cm long. No hydronephrosis or nephrolithiasis. No solid masses. Aorta: Visualized aorta is normal in caliber at less than 3 cm. Iliacs: Proximal common iliac arteries are obscured by overlying bowel gas. IVC: Intrahepatic inferior vena cava is patent. Miscellaneous: No free abdominal fluid. IMPRESSION: 1. Diffusely increased hepatic echotexture. This finding is most likely secondary to hepatic fatty infiltration although other hepatocellular disease may have a similar appearance. Recommend clinical correlation. Dictated by: Tom Corey M.D. on 08/14/2018 at 9:06 Approved by: Tom Corey M.D. on 08/14/2018 at 9:07
--- NOTE | 2018-08-14 04:48 | PC.NURSE ---
1 mg dilaudid given IV per verbal order from DR fung for abd pain 01/26.
--- NOTE | 2018-08-14 05:55 | PC.NURSE ---
normal saline to continue in acute care
--- NOTE | 2018-08-14 06:22 | PM.HP.1 ---
History of Present Illness Date Patient Seen: 08/14/18 Time Patient Seen: 06:00 Chief complaint: abdominal pain nausea vomiting Narrative: This is a 22-year-old female patient with a history of hypertension being treated with diet and exercise who presents to the ER today with severe epigastric pain. Patient reports the pain began yesterday associated abdominal cramping. She states the pain has been progressive and extends bilaterally across the costal margin with radiation to the left flank. She has had associated symptoms of diaphoresis, nausea and vomiting but denies changes in bowel or bladder. She reports no recent illness, fevers or chills. She reports taking no routine medications and has no drug allergies. She reports no recent travel. She does admit to drinking an 18 pack of beer weekly. She has no complaints of headaches or dizziness denies changes in hearing or vision. She denies nasal congestion or sore throat. She has had no cough or difficulty breathing. Denies frequency urgency or burning on urination and has a regular stooling habits. Her last menstrual period was on the of this month and normal in character and flow. The patient arrived in the emergency department at 2:40 a.m. this morning. On arrival she is found to be afebrile with temperature of 97.6? has a heart rate of 82, blood pressure 155/111 with a respiratory rate of 16 and saturating at 100% on room air. Labs were drawn which find an elevated white count at 12.5 and elevated H&H at 17.8 and 51.8 and platelets of 314. Her electrolytes are within normal limits our she does have an elevated glucose at 162. Elevated AST at 63 and ALT at 70 and most notably and elevated lipase at 12,712. The patient had a CT abdomen due to the presentation which identified pancreatitis. She also had an ultrasound done which shows no biliary dilation or stone. She has a densely found to have fatty liver on read of the night radiologist. The patient is admitted to the hospital for acute alcoholic pancreatitis. Patient History Medical History Hypertension (Acute) Ruptured ovarian cyst (Acute) Surgical History Fractured fibula (Acute) Social History household members: significant other Smoking Status: Former smoker Family & Social History Social History: household members significant other Prior Living Arrangements Apartment/Condo Safety & Behavioral: Feels Safe in Current Yes Environment Been Physically Hurt or No Threatened By a Person Suicidal Ideation Description None Tobacco & Substance use: Smoking Status Former smoker Smoking packs per day 0.5 alcohol intake frequency a few times a week Substance Use Type former substance user,marijuana Comment: The patient is single and living with her significant other in a duplex. They have been together for 6 years. Both her parents are living, her father has a history of gout and her mother is healthy. She has 1 brother is also in good health. She has no children. Occupation: Patient works in [employer] and [employer] at [employer] Smoking: Patient smoked 1/2 pack per day for 6 years and quit 3 years ago Alcohol: Patient consumes one 18 pack of beer weekly Substance use: Patient is a past marijuana smoker quitting 10 months ago Advanced directives: Patient wishes to be a full code but is not designated a surrogate decision maker and is requesting information. Meds Home Medications Medication Instructions Recorded Confirmed Type No Known Home Medications 08/14/18 08/14/18 History Allergies Allergy/AdvReac Type Severity Reaction Status Date / Time No Known Drug Allergies Allergy Verified 08/14/18 02:45 Review of Systems Review of Systems All systems reviewed & are unremarkable except as noted in HPI and below Exam Vital Signs (past 8 hours): - 08/14/18 02:40 08/14/18 03:54 08/14/18 05:45 Temperature 97.6 F 98.2 F Pulse Rate 82 79 86 Respiratory Rate 22 14 16 Blood Pressure 153/111 H 154/120 H Blood Pressure [Left Arm] 179/100 H Pulse Oximetry 100 100 99 Oxygen Delivery Method Room Air Narrative Exam Narrative: General: Well developed, obese female with BMI of 34.5 who is uncomfortable appearing Skin: Warm, dry, pink, no rashes, no visible lesions HEENT: Normocephalic, PERRLA, EOMs intact without nystagmus, conjunctiva moist, sclera is anicteric, hearing grossly normal, no sinus tenderness to percussion, no rhinorrhea, oropharynx is moist and pink without lesions or exudate, uvula midline, posterior pharynx without inflammation, no cervical lymphadenopathy Neck: Supple, no masses, no thyromegaly, trachea midline, no carotid bruits or JVD, no supraclavicular lymphadenopathy Cardiac: Regular rate and rhythm, S1-S2, no murmur, no gallops or rubs, 2+ radial pulse, 1+ dorsalis pedis pulse, capillary refill is brisk, no edema Chest: Symmetrical movement, breathing non labored, no cough present, BS equal bilateral without coarseness, crackles or wheezes Abdomen: Pain on palpation bilateral upper quadrants and left flank, mild guarding, no peritoneal signs, tympanic to percussion bilateral upper quadrants, no organomegaly, no suprapubic pain, BS normal. Back: Normal curvature, no tenderness to palpation Extremities: Full ROM, no synovial effusions or deformities, strength 5/5 and symmetrical Neuro: AAOx4, cranial nerves II-XII grossly intact, distal sensation intact to light touch, no paresthesias Psych: cooperative, thought coherent, stable mood and congruent affect Objective Labs Result Diagrams: 08/14/18 03:10 08/14/18 03:10 Labs: Laboratory Results - last 24 hr 08/14/18 08/14/18 08/14/18 03:10 03:10 03:25 WBC 12.5 H RBC 5.65 H Hgb 17.8 H Hct 51.8 H MCV 91.7 MCH 31.6 MCHC 34.4 RDW 12.8 Plt Count 314 Neut % (Auto) 84.7 H Lymph % (Auto) 9.1 L [place] % (Auto) 4.6 Eos % (Auto) 1.3 L Baso % (Auto) 0.3 Neut # (Auto) 81447 H Lymph # (Auto) 1100 [place] # (Auto) 600 Eos # (Auto) 200 Baso # (Auto) 0 Sodium 136 L Potassium 3.5 Chloride 96 L Carbon Dioxide 25 BUN 10 Creatinine 0.80 Estimated GFR > 60.0 BUN/Creatinine Ratio 12.5 Glucose 162 H Calcium 9.6 Total Bilirubin 1.0 AST 63 H ALT 70 H Alkaline Phosphatase 121 Total Protein 9.1 H Albumin 5.0 Globulin 4.1 Albumin/Globulin Ratio 1.2 Lipase 41655 H Urine RBC None seen Urine WBC 0-1/hpf Ur Squamous Epith Cells 0-1 /hpf Urine Bacteria Moderate (10-30) H Hyaline Casts 1-5/lpf Urine Mucus 2+ H Ur Culture Indicated? Cult not indicated Assessment & Plan Assessment & Plan narrative: This is a 22-year-old female who is admitted to the hospital for acute alcoholic pancreatitis 1. Acute alcoholic pancreatitis -Patient with bilateral subcostal and epigastric pain for 1 day with abdominal cramping, nausea and vomiting -elevated white count at 12.5 and lipase 12,712, pancreatitis identified on abdominal CT scan with no gallstone or biliary dilatation on ultrasound -will cover pain with Dilaudid 1 mg q.3 hours -Zofran as needed for nausea -IV normal saline at 150 cc/hour -patient with elevated glucose at 162 will obtain a hemoglobin A1c 2. Hypertension, untreated, chronic -patient with elevated blood pressure 155 111 on arrival with most recent pressure of 154/120 -patient has been on no antihypertensives and has preserved renal function -will initiate antihypertensive therapy with labetalol 100 mg twice daily 3. Hepatic steatosis, present on admission -patient with mildly elevated AST at 63, ALT at 70 -hepatic steatosis identified on imaging -will obtain a lipid panel 4. Obesity, chronic -patient with BMI of 34.5 -patient is attempting to improved diet and exercise The patient is admitted to the hospital due to severity of symptoms and the potential for complications as well as pain management. The patient will be inpatient status with expected length of stay to be greater than 2 midnights. Scores GCS Jesi coma scale eye opening: Spontaneous Jesi coma scale verbal response: Orientated [place] coma scale motor response: Obey commands Jesi coma scale total score: 15 Quality VTE Deep Vein Thrombosis/Pulmonary Embolism Present on Admission: No
[2018-08-14] MEDS: SODIUM CHLORIDE 0.9% 1,000 ML 150 ML IV ×3 (06:31→19:30)
--- NOTE | 2018-08-14 06:44 | PC.NURSE ---
Admit Note: Patient admitted from ER this shift for pancreatitis. Patient alert and oriented times 3. Rates pain 7-8 in L upper quadrant, nauseous. ERIN Merino in to assess patient. New orders received and implemented. Patient medicated with dilaudid for 8/10 pain. Will continue to monitor.
[2018-08-14] MEDS: LABETALOL 100 MG TABLET PO ×2 (07:54→20:12)
[2018-08-14] MEDS: ENOXAPARIN 40 MG/0.4 ML SYRINGE SUBCUT (07:56)
[2018-08-14 09:40] LABS: Cholesterol 224 mg/dL (140-199); HDL Cholesterol 79 mg/dL (40-60); LDL Cholesterol Calculated 111 mg/dL (<100); Triglycerides 171 mg/dL (35-150)
[2018-08-14 09:47] LABS: Hemoglobin A1C% w Est Avg Glu 4.8 % (4.0-6.0)
--- NOTE | 2018-08-14 10:31 | PC.NURSE ---
Addendum entered by Court Morales R.N. 08/14/18 12:28: At 1215, spoke with Dr. Winter, made aware of pt's pain 7-1010 pain to abd, mild nausea with belching. Pt prefers to ly flat due to nausea. Original Note: Day Shift- Pt OOB to BR, did not void at that time. Pt became nauseated, slightly light-headed, assisted back to bed. IVF infusing at 150 ml/hr per order. Pain across abd 10/10, pt has facial grimacing, guarding abd. IV prn Dilaudid given at 0915 with satisfactory effect. BP has been trending elevated. Checked at 0755 for BP 134/94 P 77, New scheduled medication of Labetalol po given at 0755. Rechecked vitals at 0915 for BP 175/106 and pulse 78. Rechecked again at 1000 for BP 147/90. Will continue to monitor. Does not meet parameters for prn IV Labetalol at this time. Pt remains NPO, mouth swabs and mouth moisturizer given and instructed on use. Pt did have a small sip of water with po med administration this AM.
--- NOTE | 2018-08-14 15:59 | CM.DANOTE ---
DCP/Assessment: Reviewed chart. Patient is a 22yr old female admitted to [facility] with abdominal pain/alcoholic pancreatitis. PCP not listed. Primary payor is 1)Yuan Henson. Met with patient explained CM/SW role. Patient reports that she is currently having abdominal discomfort. Patient resides with significant other and plans to d/c home when medically stable. [employer] asked patient about her alcohol consumption. Patient reports that I really don't drink that much she admits to drinking approximately 18 beers per week. Patient does not believe that alcohol is to blame for current medical condition. Encouraged patient to stop drinking to see if that helps. Patient denies need for any community resources for substance abuse. Patient reports that she works for the [employer] and plans to return to previous level of care at time of d/c. P: Home when stable. CM team to continue to follow if d/c needs arise. KELY Walker Discharge Planning/Care Management CM Discharge Assessment Start: 08/14/18 15:57 Freq: Status: Active Protocol: Document 08/14/18 15:57 KJS (Rec: 08/14/18 15:59 KJS [id number]) Discharge Planning Assessment Assigned Water Control Station Engineer KELY Walker Contact Information Festus Ray (significant other) [phone] Advance Directives? No History Provided By Patient Has Patient been admitted in last 30 No days? Prior Living Arrangements Apartment/Condo Household Members significant other Type of transporation used prior to Drives own vehicle admit Independent with ADL's Yes Is patient alert and oriented? Yes Caregiver for Another No Barriers to Discharge No Discharge Plan Home Additional Comment Patient declines resources for alcohol or substance abuse. Whiteboard Updated in Patient Room with Yes name and ext. # of Water Control Station Engineer Review Status In Process Please Provide Date Initial DC 08/14/18 Assessment Was Performed Next Review Type Continued Stay Review
[2018-08-14 18:01] LABS: Blood Urea Nitrogen 8 mg/dL (7-17); Calcium 7.9 mg/dL (8.4-10.2); Carbon Dioxide 24 mmol/L (22-32); Chloride 101 mmol/L (98-107); Estimated Glomerular Filt Rate > 60.0 mL/min (>60); Glucose 114 mg/dL (70-100); Magnesium 1.8 mg/dL (1.6-2.3); Sodium 134 mmol/L (137-145)
[2018-08-14 18:02] LABS: HEMOLYSIS 70 (0-50)
[2018-08-14 18:03] LABS: Potassium 3.6 mmol/L (3.4-5.1)
--- NOTE | 2018-08-14 21:19 | PC.NURSE ---
Pt resting in bed most of the shift. Up to the bathroom w/SO or SBA, gait steady. Had mild nausea, zofran effective. Abd pain decreased well with IVP Dilaudid. BP elevated, SBP 140s-150s/ DBP 90s-100s scheduled Labetalol given and BP still 150s/90s. Sulaiman KHAN aware and no new orders at this time. Pt has been A&O, calm and cooperative.
[2018-08-15] VITALS (10 sets, daily range): BP systolic 144–164; BP diastolic 83–97; PULSE 87–109; RESP 16; TEMP 36.6–37.4; O2SAT 96–98
[2018-08-15] MEDS: SODIUM CHLORIDE 0.9% 1,000 ML 150 ML IV ×2 (00:29→18:42)
[2018-08-15] MEDS: HYDROMORPHONE 1 MG INJ IV ×6 (01:05→20:02)
[2018-08-15] MEDS: ONDANSETRON 4 MG/2 ML INJ IV ×2 (02:52→20:01)
[2018-08-15 05:35] LABS: Add Manual Diff / Slide Review NO; Basophils Absolute Auto 0 /uL (0-100); Basophils Percent Auto 0.4 % (0-2); Eosinophils Absolute Auto 100 /uL (0-450); Eosinophils Percent Auto 0.5 % (2-4); Hematocrit 44.9 % (36-46); Hemoglobin 15.3 g/dL (12.0-16.0); Lymphocytes Absolute Auto 700 /uL (1100-4500); Mean Corpuscular HGB Conc 34.1 % (30-36); Mean Corpuscular Hemoglobin 31.7 PG (26-34); Monocytes Absolute Auto 600 /uL (0-900); Monocytes Percent Auto 5.8 % (3-14); Neutrophils Absolute Auto 8500 /uL (1500-7000); Neutrophils Percent Auto 86.3 % (50-75); Platelet Count 221 X10^3/uL (150-400); Red Blood Cell Count 4.82 X10^6/uL (4.0-5.2); Red Cell Distribution Width 12.7 % (11.6-14.8); White Blood Cell Count 9.8 X10^3/uL (4.5-11.0)
[2018-08-15 05:46] LABS: Blood Urea Nitrogen 9 mg/dL (7-17); Calcium 7.4 mg/dL (8.4-10.2); Carbon Dioxide 24 mmol/L (22-32); Chloride 103 mmol/L (98-107); Estimated Glomerular Filt Rate > 60.0 mL/min (>60); Glucose 114 mg/dL (70-100); HEMOLYSIS < 15 (0-50); Potassium 3.3 mmol/L (3.4-5.1); Sodium 135 mmol/L (137-145)
[2018-08-15 05:56] LABS: Lipase 3319 U/L (23-300)
--- NOTE | 2018-08-15 06:08 | PC.NURSE ---
NOC SHIFT/ FLATUS: Patient resting this shift, dilaudid helpful for pain. Patient complaining of feeling gassy, states she is burping a lot but not passing gas yet. Patient ambulated in hallways to help move this gas. VSS, No acute distress, no nausea.
[2018-08-15] MEDS: POTASSIUM CHLORIDE 40 MEQ in SODIUM CHLORIDE 0.9% 500 ML 130 ML IV (08:06)
[2018-08-15] MEDS: ENOXAPARIN 40 MG/0.4 ML SYRINGE SUBCUT (08:49)
[2018-08-15] MEDS: LABETALOL 100 MG TABLET PO ×2 (08:49→20:17)
[2018-08-15] MEDS: INFLUENZA VACCINE 0.5 ML SYRINGE IM (08:51)
--- NOTE | 2018-08-15 10:25 | PC.NURSE ---
Day shift note: Assumed pt care at 0700. Pt a/o x3, c/o pain, medicated at 0800 with PRN dilaudid with effect. Ambulating IND in room, no bowel movement with hypoactive bowel tones. Pt declined scheduled Zofran due to no nausea and remains NPO. IV potassium running, K+ 3.3 this morning. Will continue to monitor, plan of care continues. Bed in lowest locked position and call light within reach.
--- NOTE | 2018-08-15 16:24 | PM.PN.1 ---
Subjective Date Patient Seen: 08/15/18 Time Patient Seen: 16:25 Interval history: Follow-up on acute alcoholic pancreatitis. Patient seen at bedside. She is doing well. She still has some abdominal pain, but it is improving. Patient is hungry and would like to eat. She is denying any nausea or vomiting at this time. No overnight events. Exam Vital Signs (past 8 hours): - 08/15/18 12:17 08/15/18 16:00 Temperature 98 F Pulse Rate 92 H 109 H Respiratory Rate 16 16 Blood Pressure 154/83 H 164/97 H Pulse Oximetry 96 98 Oxygen Delivery Method Room Air Oxygen Flow Rate 0 Narrative Exam Narrative: General: Well developed, obese female with BMI of 34.5 in no acute distress Skin: Warm, dry, pink, no rashes, no visible lesions HEENT: Normocephalic, PERRLA, EOMI BL. Dry mucous membranes. Neck: Supple, no masses, no thyromegaly. Cardiac: Regular rate and rhythm, S1-S2, no murmur, no gallops or rubs, 2+ radial pulse, 1+ dorsalis pedis pulse, capillary refill is brisk, no edema Chest: Symmetrical movement, breathing non labored, no cough present, BS equal bilateral without coarseness, crackles or wheezes Abdomen: Pain on palpation bilateral upper quadrants and left flank. Non distended. +BS in all four quadrants. Back: Normal curvature, no tenderness to palpation Extremities: Full ROM, no synovial effusions or deformities, strength 5/5 and symmetrical Neuro: AAOx4, cranial nerves II-XII grossly intact, NFD Psych: cooperative, thought coherent, stable. capable of making her own decisions Objective Labs Result Diagrams: 08/15/18 05:11 08/15/18 05:11 Labs: Laboratory Results - last 24 hr 08/14/18 08/15/18 08/15/18 17:20 05:11 05:11 WBC 9.8 RBC 4.82 Hgb 15.3 Hct 44.9 MCV 93.0 MCH 31.7 MCHC 34.1 RDW 12.7 Plt Count 221 Neut % (Auto) 86.3 H Lymph % (Auto) 7.0 L [place] % (Auto) 5.8 Eos % (Auto) 0.5 L Baso % (Auto) 0.4 Neut # (Auto) 8500 H Lymph # (Auto) 700 L [place] # (Auto) 600 Eos # (Auto) 100 Baso # (Auto) 0 Sodium 134 L 135 L Potassium 3.6 3.3 L Chloride 101 103 Carbon Dioxide 24 24 BUN 8 9 Creatinine 0.50 L 0.60 Estimated GFR > 60.0 > 60.0 BUN/Creatinine Ratio 16.0 15.0 Glucose 114 H 114 H Calcium 7.9 L 7.4 L Magnesium 1.8 Lipase 3319 H D Assessment & Plan Assessment & Plan narrative: 22-year-old female who is admitted to the hospital for acute alcoholic pancreatitis 1. Acute alcoholic pancreatitis -Improving -WBC normalized, Lipase down to 3K -pancreatitis identified on abdominal CT scan with no gallstone or biliary dilatation on ultrasound -Appetite coming back, patient requesting diet -will cover pain with Dilaudid 1 mg q.3 hours -Zofran as needed for nausea -IV normal saline at 150 cc/hour -Will give water only since lipase is still quite high. Will initiate CLD tomorrow if patient continues to improve 2. Hypertension -BP Still elevated, could be pain related vs chronic hypertension -continue labetalol 100 mg twice daily and add on Lisinopril 2.5mg PO Daily - Monitor BP 3. Hepatic steatosis, present on admission -patient with mildly elevated AST at 63, ALT at 70 on admission -hepatic steatosis identified on imaging -lipid panel revelaed TGL 171, Total chol 224, LDL 111, HDL 79 -follow up with PCP outpatient, travel counselor [employer] regarding low cholesterol diet 4. Obesity, chronic -patient with BMI of 34.5 -patient is attempting to improved diet and exercise Dispo: Pancreatitis improving. Continue to monitor and advance diet as tolerated tomorrow. Quality VTE Deep Vein Thrombosis/Pulmonary Embolism Present on Admission: No
[2018-08-16] VITALS (12 sets, daily range): BP systolic 139–156; BP diastolic 76–95; PULSE 90–111; RESP 15–20; TEMP 36.7–37.4; O2SAT 97–100
[2018-08-16] MEDS: SODIUM CHLORIDE 0.9% 1,000 ML 150 ML IV ×3 (01:28→20:34)
[2018-08-16] MEDS: HYDROMORPHONE 1 MG INJ IV ×6 (01:32→20:34)
[2018-08-16 05:28] LABS: Add Manual Diff / Slide Review NO; Basophils Absolute Auto 0 /uL (0-100); Basophils Percent Auto 0.4 % (0-2); Eosinophils Absolute Auto 200 /uL (0-450); Eosinophils Percent Auto 1.5 % (2-4); Hematocrit 40.9 % (36-46); Hemoglobin 14.1 g/dL (12.0-16.0); Lymphocytes Absolute Auto 900 /uL (1100-4500); Lymphocytes Percent Auto 8.5 % (25-40); Mean Corpuscular HGB Conc 34.4 % (30-36); Mean Corpuscular Hemoglobin 31.7 PG (26-34); Mean Corpuscular Volume 92.1 fL (80-100); Monocytes Absolute Auto 800 /uL (0-900); Monocytes Percent Auto 7.7 % (3-14); Neutrophils Absolute Auto 8800 /uL (1500-7000); Neutrophils Percent Auto 81.9 % (50-75); Platelet Count 222 X10^3/uL (150-400); Red Blood Cell Count 4.44 X10^6/uL (4.0-5.2); Red Cell Distribution Width 12.4 % (11.6-14.8); White Blood Cell Count 10.7 X10^3/uL (4.5-11.0)
[2018-08-16 05:37] LABS: Blood Urea Nitrogen 6 mg/dL (7-17); Calcium 7.5 mg/dL (8.4-10.2); Carbon Dioxide 26 mmol/L (22-32); Chloride 99 mmol/L (98-107); Estimated Glomerular Filt Rate > 60.0 mL/min (>60); Glucose 100 mg/dL (70-100); HEMOLYSIS < 15 (0-50); Lipase 738 U/L (23-300); Potassium 3.3 mmol/L (3.4-5.1); Sodium 134 mmol/L (137-145)
[2018-08-16] MEDS: POTASSIUM CHLORIDE 40 MEQ in SODIUM CHLORIDE 0.9% 500 ML 130 ML IV (06:20)
[2018-08-16] MEDS: LABETALOL 100 MG TABLET 200 MG PO ×2 (09:23→20:35)
[2018-08-16] MEDS: ENOXAPARIN 40 MG/0.4 ML SYRINGE SUBCUT (09:24)
[2018-08-16] MEDS: ONDANSETRON 4 MG/2 ML INJ IV ×2 (09:25→17:49)
--- NOTE | 2018-08-16 11:31 | PC.NURSE ---
Yasmine is still experiencing waves of abd. pain which radiate thru to her back. She has been medicated with Zofran and IV Dilaudid. She states the warm k-pad to her back helps with pain. IV infusing. No emesis. Yasmine is just starting a trial of clear liq. and will make regular diet available to her at lunch if she tolerates it. VSS.
--- NOTE | 2018-08-16 13:28 | PM.PN.1 ---
Subjective Date Patient Seen: 08/16/18 Time Patient Seen: 13:28 Interval history: Follow-up on acute alcoholic pancreatitis. Patient seen at bedside. She is doing well. She had some nausea this am that was relieved with zofran. No acute overnight events. Overnight patient's BP remained elevated and her HR was also increased. Therefore she was increased on labetalol dose by material handler 1st shift team. Exam Vital Signs (past 8 hours): - 08/16/18 06:34 08/16/18 07:00 08/16/18 08:35 Temperature 98.3 F Pulse Rate 94 H 95 H Respiratory Rate 16 Blood Pressure 139/76 146/94 H Pulse Oximetry 100 98 Oxygen Delivery Method Room Air Oxygen Flow Rate 0 Narrative Exam Narrative: General: Well developed, obese female with BMI of 34.5 in no acute distress Skin: Warm, dry, pink, no rashes, no visible lesions HEENT: Normocephalic, PERRLA, EOMI BL. Dry mucous membranes. Neck: Supple, no masses, no thyromegaly. Cardiac: Regular rate and rhythm, S1-S2, no murmur, no gallops or rubs, 2+ radial pulse, 1+ dorsalis pedis pulse, capillary refill is brisk, no edema Chest: Symmetrical movement, breathing non labored, no cough present, BS equal bilateral without coarseness, crackles or wheezes Abdomen: Pain on palpation bilateral upper quadrants and left flank. Non distended. +BS in all four quadrants. Back: Normal curvature, no tenderness to palpation Extremities: Full ROM, no synovial effusions or deformities, strength 5/5 and symmetrical Neuro: AAOx4, cranial nerves II-XII grossly intact, NFD Psych: cooperative, thought coherent, stable. capable of making her own decisions Objective Labs Result Diagrams: 08/16/18 05:12 08/16/18 05:12 Labs: Laboratory Results - last 24 hr 08/16/18 08/16/18 05:12 05:12 WBC 10.7 RBC 4.44 Hgb 14.1 Hct 40.9 MCV 92.1 MCH 31.7 MCHC 34.4 RDW 12.4 Plt Count 222 Neut % (Auto) 81.9 H Lymph % (Auto) 8.5 L [place] % (Auto) 7.7 Eos % (Auto) 1.5 L Baso % (Auto) 0.4 Neut # (Auto) 8800 H Lymph # (Auto) 900 L [place] # (Auto) 800 Eos # (Auto) 200 Baso # (Auto) 0 Sodium 134 L Potassium 3.3 L Chloride 99 Carbon Dioxide 26 BUN 6 L Creatinine 0.60 Estimated GFR > 60.0 BUN/Creatinine Ratio 10.0 Glucose 100 Calcium 7.5 L Lipase 738 H D Assessment & Plan Assessment & Plan narrative: 22-year-old female who is admitted to the hospital for acute alcoholic pancreatitis 1. Acute alcoholic pancreatitis -Improving -WBC normalized, Lipase down to 738 -pancreatitis identified on abdominal CT scan with no gallstone or biliary dilatation on ultrasound -Continue pain control with Dilaudid 1 mg q.3 hours -Zofran as needed for nausea -IV normal saline at 150 cc/hour -Will advance diet now 2. Hypertension -BP Still elevated, could be pain related vs chronic hypertension -Increased labetalol to 200 mg twice daily and continuing Lisinopril 2.5mg PO Daily - Monitor BP 3. Hepatic steatosis, present on admission -patient with mildly elevated AST at 63, ALT at 70 on admission -hepatic steatosis identified on imaging -lipid panel revelaed TGL 171, Total chol 224, LDL 111, HDL 79 -follow up with PCP outpatient, primary substance abuse counselor regarding low cholesterol diet 4. Obesity, chronic -patient with BMI of 34.5 -patient is attempting to improved diet and exercise Dispo: Pancreatitis improving. Continue to monitor and advance diet as tolerated. Quality VTE Deep Vein Thrombosis/Pulmonary Embolism Present on Admission: No
--- NOTE | 2018-08-16 14:20 | DIET.PN ---
Pt on bowel rest r/t pancreatitis; starting PO today. ok so far DX Pancreatitis Usual Diet: Three meals daily - Lettuce wrap sandwich w/deli meat, cheese, tomato, peppers for breakfast and lunch. Dinner Meat, starch, vegetables and salad. Eats fresh, whole foods w/minimal processed foods. Drinks 2-3 [address] per [address], but states she'll be doing away with that. Drinks lot of water Exercise: Has physically active job, working outside. Assessment: Progressing. Usual diet appears well balanced. Pt receptive to make changes to better her health and doesn't appear that alcohol is a big priority or that it will be a problem to DC. Intervention: Provided ed on pancreatitis diet - low fat, abstinance from ETOH, Plan: Monitor PO intake / tolerance
--- NOTE | 2018-08-16 18:46 | PC.NURSE ---
Evening shift Pt requested Dietary consult as she was in severe pain and experiencing nausea during her initial meeting with dietary. Pt reported that her pain was controlled with dilaudid and k-pad. Pt passing gas, and tolerating advanced diet. BT+. Pt ambulating in [place] with .
--- NOTE | 2018-08-16 21:24 | PC.NURSE ---
Evening Shift Pt had abdominal pain that was well controlled with X2 IV dilaudid. No c/o nausea, pt refused scheduled zofran. Pt requested a consult with dietary, as her first meeting with them she was experiencing pain and nausea, this nurse put an order in for that.
[2018-08-17] VITALS (12 sets, daily range): BP systolic 142–159; BP diastolic 79–94; PULSE 78–96; RESP 16–18; TEMP 36.9–37.3; O2SAT 96–100
[2018-08-17] MEDS: HYDROMORPHONE 1 MG INJ IV ×2 (00:54→05:42)
[2018-08-17] MEDS: SODIUM CHLORIDE 0.9% 1,000 ML 150 ML IV (03:05)
[2018-08-17] MEDS: ONDANSETRON 4 MG/2 ML INJ IV ×2 (03:50→08:28)
[2018-08-17 06:09] LABS: Add Manual Diff / Slide Review NO; Basophils Absolute Auto 0 /uL (0-100); Basophils Percent Auto 0.5 % (0-2); Eosinophils Absolute Auto 300 /uL (0-450); Eosinophils Percent Auto 3.6 % (2-4); Hematocrit 37.4 % (36-46); Hemoglobin 12.9 g/dL (12.0-16.0); Lymphocytes Absolute Auto 1000 /uL (1100-4500); Mean Corpuscular HGB Conc 34.5 % (30-36); Mean Corpuscular Hemoglobin 31.5 PG (26-34); Mean Corpuscular Volume 91.2 fL (80-100); Monocytes Absolute Auto 1000 /uL (0-900); Neutrophils Absolute Auto 7400 /uL (1500-7000); Neutrophils Percent Auto 75.9 % (50-75); Platelet Count 241 X10^3/uL (150-400); Red Cell Distribution Width 12.5 % (11.6-14.8); White Blood Cell Count 9.7 X10^3/uL (4.5-11.0)
[2018-08-17 06:17] LABS: Lipase 797 U/L (23-300)
[2018-08-17 06:19] LABS: Blood Urea Nitrogen 3 mg/dL (7-17); Calcium 7.8 mg/dL (8.4-10.2); Carbon Dioxide 25 mmol/L (22-32); Chloride 99 mmol/L (98-107); Estimated Glomerular Filt Rate > 60.0 mL/min (>60); Glucose 87 mg/dL (70-100); HEMOLYSIS < 15 (0-50); Potassium 2.9 mmol/L (3.4-5.1); Sodium 134 mmol/L (137-145)
[2018-08-17] MEDS: ENOXAPARIN 40 MG/0.4 ML SYRINGE SUBCUT (08:27)
[2018-08-17] MEDS: LABETALOL 100 MG TABLET 200 MG PO ×2 (08:27→20:16)
[2018-08-17] MEDS: POTASSIUM CHLORIDE 60 MEQ in SODIUM CHLORIDE 0.9% 500 ML 88.333 ML IV (08:27)
--- NOTE | 2018-08-17 10:44 | PM.PN.1 ---
Subjective Date Patient Seen: 08/17/18 Time Patient Seen: 10:44 Interval history: Follow-up on acute alcoholic pancreatitis. Patient seen at bedside. She is doing well. She is able to tolerate diet well but has frequent episodes of pain. Lipase went up this morning. No other overnight events. Exam Vital Signs (past 8 hours): - 08/17/18 04:09 08/17/18 08:00 08/17/18 08:42 Temperature 98.4 F 98.4 F Pulse Rate 90 89 Respiratory Rate 18 16 Blood Pressure 144/86 H 152/92 H Pulse Oximetry 97 99 98 Oxygen Delivery Method Room Air Oxygen Flow Rate 0 Narrative Exam Narrative: General: Well developed, obese female with BMI of 34.5 in no acute distress Skin: Warm, dry, pink, no rashes, no visible lesions HEENT: Normocephalic, PERRLA, EOMI BL. Dry mucous membranes. Neck: Supple, no masses, no thyromegaly. Cardiac: Regular rate and rhythm, S1-S2, no murmur, no gallops or rubs, 2+ radial pulse, 1+ dorsalis pedis pulse, capillary refill is brisk, no edema Chest: Symmetrical movement, breathing non labored, no cough present, BS equal bilateral without coarseness, crackles or wheezes Abdomen: Pain on palpation bilateral upper quadrants and left flank. Non distended. +BS in all four quadrants. Back: Normal curvature, no tenderness to palpation Extremities: Full ROM, no synovial effusions or deformities, strength 5/5 and symmetrical Neuro: AAOx4, cranial nerves II-XII grossly intact, NFD Psych: cooperative, thought coherent, stable. capable of making her own decisions Objective Labs Result Diagrams: 08/17/18 05:27 08/17/18 05:27 Labs: Laboratory Results - last 24 hr 08/17/18 08/17/18 08/17/18 05:27 05:27 05:27 WBC 9.7 RBC 4.10 Hgb 12.9 Hct 37.4 MCV 91.2 MCH 31.5 MCHC 34.5 RDW 12.5 Plt Count 241 Neut % (Auto) 75.9 H Lymph % (Auto) 10.0 L [place] % (Auto) 10.0 Eos % (Auto) 3.6 Baso % (Auto) 0.5 Neut # (Auto) 7400 H Lymph # (Auto) 1000 L [place] # (Auto) 1000 H Eos # (Auto) 300 Baso # (Auto) 0 Sodium 134 L Potassium 2.9 L Chloride 99 Carbon Dioxide 25 BUN 3 L Creatinine 0.60 Estimated GFR > 60.0 BUN/Creatinine Ratio 5.0 L Glucose 87 Calcium 7.8 L Lipase 797 H Assessment & Plan Assessment & Plan narrative: 22-year-old female who is admitted to the hospital for acute alcoholic pancreatitis 1. Acute alcoholic pancreatitis -Improving -WBC normalized, Lipase bumped up to 797 -pancreatitis identified on abdominal CT scan with no gallstone or biliary dilatation on ultrasound -Will stop dilaudid for pain control and start [place] 5/325 Q4H PRN for pain -Zofran as needed for nausea -Will stop fluids at this time as patient is eating - Monitor for improvement. Possible discharge tomorrow 2. Hypertension -BP Still elevated -Continue labetalol to 200 mg twice daily and increase Lisinopril to 10mg PO daily - Monitor BP 3. Hepatic steatosis, present on admission -patient with mildly elevated AST at 63, ALT at 70 on admission -hepatic steatosis identified on imaging -lipid panel revelaed TGL 171, Total chol 224, LDL 111, HDL 79 -follow up with PCP outpatient, branch credit counselor regarding low cholesterol diet 4. Obesity, chronic -patient with BMI of 34.5 -patient is attempting to improved diet and exercise Dispo: Pancreatitis improving. Continue to monitor and advance diet as tolerated. Quality VTE Deep Vein Thrombosis/Pulmonary Embolism Present on Admission: No
[2018-08-17] MEDS: HYDROCODONE/ACET 5/325 TABLET 1 TAB PO ×4 (11:10→22:50)
[2018-08-17] MEDS: LISINOPRIL 10 MG TABLET PO (12:03)
--- NOTE | 2018-08-17 14:54 | DIET.PN ---
Pt requested dietary consult to review pancreatic nutrition therapy. 1. Discussed fat gram goal of 50-60 grams per day. 2. Provided food list of items to limit and items to increase. 3. Discussed importance of pancreas in the digestion of food. 4. Recommended pt avoid alcohol and large amounts of caffeine. Pt with good understanding and very receptive to information provided.
--- NOTE | 2018-08-17 21:44 | PC.NURSE ---
1500- assumed care of pt from outgoing shift. Pt awake and alert. Pt uses call light. pleasant and cooperative with nursing staff. all questions answered. pt walked around halls a few times. reported pain and given pain meds per MAR. Pt spoke with her mother on her phone and pt was crying. vitals taken and bp elevated. Pt discussed how long bp has been elevated for and pt reported that she has been under alot of stress the last few months. Pt tolerated bp meds. bed alarm off, pt ambulates steady gait. pt knows to call staff if needing assistance. will continue to monitor.
[2018-08-17] MEDS: SODIUM CHLORIDE 0.9% FLUSH 10 ML IV (22:03)
[2018-08-18] VITALS: BP 136/69; PULSE 83; RESP 18; TEMP 37.3; O2SAT 97
[2018-08-18] MEDS: HYDROCODONE/ACET 5/325 TABLET 1 TAB PO ×3 (03:08→13:16)
[2018-08-18 04:00] VITALS: BP 155/85; PULSE 82; RESP 18; TEMP 36.8; O2SAT 99
[2018-08-18 06:01] LABS: Add Manual Diff / Slide Review NO; Basophils Absolute Auto 0 /uL (0-100); Basophils Percent Auto 0.4 % (0-2); Eosinophils Absolute Auto 400 /uL (0-450); Eosinophils Percent Auto 4.6 % (2-4); Hematocrit 35.3 % (36-46); Hemoglobin 12.1 g/dL (12.0-16.0); Lymphocytes Absolute Auto 900 /uL (1100-4500); Lymphocytes Percent Auto 10.2 % (25-40); Mean Corpuscular HGB Conc 34.3 % (30-36); Mean Corpuscular Hemoglobin 31.5 PG (26-34); Monocytes Absolute Auto 1300 /uL (0-900); Monocytes Percent Auto 14.5 % (3-14); Neutrophils Absolute Auto 6500 /uL (1500-7000); Neutrophils Percent Auto 70.3 % (50-75); Platelet Count 289 X10^3/uL (150-400); Red Blood Cell Count 3.84 X10^6/uL (4.0-5.2); Red Cell Distribution Width 12.4 % (11.6-14.8); White Blood Cell Count 9.2 X10^3/uL (4.5-11.0)
[2018-08-18 06:04] LABS: Lipase 929 U/L (23-300)
[2018-08-18 06:05] LABS: Blood Urea Nitrogen 3 mg/dL (7-17); Calcium 8.4 mg/dL (8.4-10.2); Carbon Dioxide 24 mmol/L (22-32); Chloride 102 mmol/L (98-107); Estimated Glomerular Filt Rate > 60.0 mL/min (>60); Glucose 89 mg/dL (70-100); HEMOLYSIS < 15 (0-50); Sodium 135 mmol/L (137-145)
[2018-08-18 08:00] VITALS: O2SAT 99
[2018-08-18 08:36] VITALS: BP 146/84; PULSE 89; RESP 16; TEMP 36.7
[2018-08-18] MEDS: POTASSIUM CHLORIDE 60 MEQ in SODIUM CHLORIDE 0.9% 500 ML 88.333 ML IV (08:39)
[2018-08-18] MEDS: LABETALOL 100 MG TABLET 200 MG PO (08:39)
[2018-08-18] MEDS: ENOXAPARIN 40 MG/0.4 ML SYRINGE SUBCUT (08:39)
[2018-08-18] MEDS: LISINOPRIL 10 MG TABLET PO (08:40)
[2018-08-18] MEDS: SODIUM CHLORIDE 0.9% FLUSH 10 ML IV (08:40)
--- NOTE | 2018-08-18 10:31 | P.DS_ITS ---
History of Present Illness Date Patient Seen: 08/18/18 Time Patient Seen: 10:31 Chief complaint: abdominal pain nausea vomiting Narrative: This is a 22-year-old female patient with a history of hypertension being treated with diet and exercise who presents to the ER today with severe epiga stric pain. Patient reports the pain began yesterday associated abdominal cramping. She states the pain has been progressive and extends bilaterally across the costal margin with radiation to the left flank. She has had associated symptoms of diaphoresis, nausea and vomiting but denies changes in bowel or bladder. She reports no recent illness, fevers or chills. She reports taking no routine medications and has no drug allergies. She reports no recent travel. She does admit to drinking an 18 pack of beer weekly. She has no complaints of headaches or dizziness denies changes in hearing or vision. She denies nasal congestion or sore throat. She has had no cough or difficulty breathing. Denies frequency urgency or burning on urination and has a regular stooling habits. Her last menstrual period was on the 16 of this month and normal in character and flow. The patient arrived in the emergency department at 2:40 a.m. this morning. On arrival she is found to be afebrile with temperature of 97.6? has a heart rate of 82, blood pressure 155/111 with a respiratory rate of 16 and saturating at 100% on room air. Labs were drawn which find an elevated white count at 12.5 and elevated H&H at 17.8 and 51.8 and platelets of 314. Her electrolytes are within normal limits our she does have an elevated glucose at 162. Elevated AST at 63 and ALT at 70 and most notably and elevated lipase at 12,712. The patient had a CT abdomen due to the presentation which identified pancreatitis. She also had an ultrasound done which shows no biliary dilation or stone. She has a densely found to have fatty liver on read of the night radiologist. The patient is admitted to the hospital for acute alcoholic pancreatitis. Discharge Providers Date of admission: 08/14/18 05:32 Discharge Date: 08/18/18 Consults: 08/14/18 06:10 Consult to Dietitian, Adult Routine Comment: Reason For Exam: Obesity, pancreatitis Consult to Gas Inspector Routine Comment: requests info on Adv directives 08/14/18 06:11 Consult to Discharge Planning Routine Comment: 08/16/18 18:44 Consult to Dietitian, Adult Routine Comment: Pt requested to talk about diet for pancreatitis Reason For Exam: Pancreatitis diet 08/17/18 11:45 Consult to Dietitian, Adult Routine Comment: Reason For Exam: patient requests repeat teaching. Discharge provider: Jon Stacy MD Summary Discharge Diagnosis: 1. Acute alcoholic pancreatitis 2. Hypertension 3. Hepatic steatosis, present on admission 4. Obesity, chronic 5. Hypokalemia Hospital Course: 1. Acute alcoholic pancreatitis -Improving and tolerating oral intake for several days now. -WBC normalized, Lipase bumped up from 797 to 929 today. She denies any pain at this time. -pancreatitis identified on abdominal CT scan with no gallstone or biliary dilatation on ultrasound -she denies pain today and has been only on [place] 5/325 Q4H PRN for pain since yesterday -she is sure that she will not have any trouble avoiding all alcohol in the future. 2. Hypertension -BP Still elevated -Continue labetalol 200 mg twice daily and Lisinopril to 10mg PO daily until follow-up with her primary care at the [facility]. - Monitor BP at home 3. Hepatic steatosis, present on admission -patient with mildly elevated AST at 63, ALT at 70 on admission -hepatic steatosis identified on imaging -lipid panel revelaed TGL 171, Total chol 224, LDL 111, HDL 79 -follow up with PCP outpatient, psychotherapist counselor regarding low cholesterol diet 4. Obesity, chronic -patient with BMI of 34.5 -patient is attempting to improved diet and exercise. 5. Hypokalemia - potassium 3.0 today -supplement with 60 aishwarya equivalent IV today and 10 aishwarya equivalent daily until rechecked by her primary care Exam Vital Signs (past 8 hours): - 08/18/18 04:00 08/18/18 08:00 08/18/18 08:36 Temperature 98.3 F 98.1 F Pulse Rate 82 89 Respiratory Rate 18 16 Blood Pressure 155/85 H 146/84 H Pulse Oximetry 99 99 Oxygen Delivery Method Room Air Oxygen Flow Rate 0 Narrative Exam Narrative: Alert and oriented x3, no apparent distress. She is sitting up in bed visiting with a friend. Heart is regular rate and rhythm without murmur. Lungs are clear to auscultation bilaterally. Extremities have no ankle edema. Abdomen is soft, bowel sounds positive, nontender, no organomegaly. Blood pressure is 155/85. Objective Labs Result Diagrams: 08/18/18 05:24 08/18/18 05:24 Labs: Laboratory Results - last 24 hr 08/18/18 08/18/18 08/18/18 05:24 05:24 05:24 WBC 9.2 RBC 3.84 L Hgb 12.1 Hct 35.3 L MCV 92.0 MCH 31.5 MCHC 34.3 RDW 12.4 Plt Count 289 Neut % (Auto) 70.3 Lymph % (Auto) 10.2 L [place] % (Auto) 14.5 H Eos % (Auto) 4.6 H Baso % (Auto) 0.4 Neut # (Auto) 6500 Lymph # (Auto) 900 L [place] # (Auto) 1300 H Eos # (Auto) 400 Baso # (Auto) 0 Sodium 135 L Potassium 3.0 L Chloride 102 Carbon Dioxide 24 BUN 3 L Creatinine 0.50 L Estimated GFR > 60.0 BUN/Creatinine Ratio 6.0 Glucose 89 Calcium 8.4 Lipase 929 H Discharge Plan Discharge Plan Patient Disposition: Home Discharge comment: Make a follow up appointment with your [facility] PCP or your new local PCP next week. You will need a follow up Potassium level in the next few days. Discharge Med Rec/Prescriptions Prescriptions: New lisinopril 10 mg Tablet 10 mg PO DAILY Qty: 15 RF: 0 labetalol 100 mg Tablet 200 mg PO BID Qty: 30 RF: 0 potassium chloride 10 mEq capsule, extended release 10 meq PO DAILY Qty: 10 RF: 0 Provider Discharge Instructions Diet: Diet as Tolerated and Low-fat Visit Report/Discharge Packet Instructions: Alcohol and Stress: There are Safer Ways to [place], DI for Pancre atitis Discharge Data Attending Provider: Hayes Hyde Admit Date/Time: 08/14/18 05:32 Quality VTE Deep Vein Thrombosis/Pulmonary Embolism Present on Admission: No
[2018-08-18 11:53] VITALS: BP 138/86; PULSE 79; RESP 16; TEMP 36.7; O2SAT 100
--- NOTE | 2018-08-18 12:40 | PC.NURSE ---
PATIENT RATES PAIN BETWEEN 3-6/10, VICODIN EFFECTIVE. DENIES NAUSEA. TOLERATING DIET. DC ORDERS. CLARIFIED W/ MD, PATIENT IS TO STAY UNTIL K-RIDER COMPLETED. PATIENT HAS BEEN AMBULATORY IN HALLS. OFFERED SUPPORTS W/ STOPPING DRINKING ETOH. PATIENT STATES SHE FEELS SHE CAN STOP ON HER OWN WITHOUT ANY DIFFICULTY.
--- NOTE | 2018-08-18 13:09 | CM.DPC ---
DCP Discharge Home Per MD, pt is medically stable to d/c home today via spouse POV and follow up with the Base Doctor. Per MD, pt does not feel that it will be difficult to stop drinking as now she is aware of the medical impact. Per Rn, no further concerns at this time and pt ready for d/c home. Pt has declined ETOH resources and supports and has expressed that she does not feel that abstaining from alcohol will be a challenge and she plans to stop drinking at this time. Plan: Patient to d/c home today via spouse POV. No SW needs at this time. Jesika Cortés MSW
== END 2018-08-18 15:10 | disposition home or self-care (01) | DRG 440 ==
LOC: ED 04:01 → AC 05:33
PROVIDERS: Internal Medicine; Admitting Provider Nurse Practitioner Adult Health; Emergency Provider Emergency Medicine; Visit Provider Nurse Practitioner Adult Health
DX: K85.20 Alcohol induced acute pancreatitis without necrosis or infection (principal); K76.0 Fatty (change of) liver, not elsewhere classified; E66.9 Obesity, unspecified; Z68.34 Body mass index [BMI] 34.0-34.9, adult; I10 Essential (primary) hypertension
CPT/HCPCS: 36415; 36591; 74022; 74177; 76700; 80048; 80053; 80061; 81003; 81015; 81025; 83036; 83690; 83735; 85025; 90471; 90656; 96361; 96374; 96375; 96376; 99283; 99285; J1170; J1650; J2405; J3480; Q2038; Q9967

== ENCOUNTER 2019-02-02 09:33 | Emergency (ER) | payer OTHER, SELFPAY ==
[2018-08-14 05:51] VITALS: BMI 34.4
[2019-02-02 09:35] VITALS: BP 156/103; PULSE 80; RESP 14; TEMP 36.8; O2SAT 100
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
[2019-02-02] MEDS: KETOROLAC 60 MG/2 ML VIAL 30 MG IM (09:56)
[2019-02-02 10:23] VITALS: BP 134/82; PULSE 73; RESP 18; O2SAT 99
== END 2019-02-02 10:23 | disposition home or self-care (01) ==
PROVIDERS: Emergency Provider Emergency Medicine
DX: S16.1XXA Strain of muscle, fascia and tendon at neck level, initial encounter (principal); X50.9XXA Other and unspecified overexertion or strenuous movements or postures, initial encounter; Y99.0 Civilian activity done for income or pay
CPT/HCPCS: 96372; 99282; 99283; J1885

== ENCOUNTER 2019-11-06 08:57 | Emergency (ER) | payer BC, SELFPAY ==
[2018-08-14 05:51] VITALS: BMI 34.4
[2019-11-06 09:10] VITALS: BP 137/78; PULSE 79; RESP 14; TEMP 37.2; O2SAT 100; BMI 34.2
[2019-11-06 09:37] LABS: Add Manual Diff / Slide Review NO; Basophils Absolute Auto 0 /uL (0-100); Basophils Percent Auto 0.6 % (0-2); Eosinophils Absolute Auto 1400 /uL (0-450); Eosinophils Percent Auto 15.6 % (2-4); Hematocrit 41.6 % (36-46); Hemoglobin 14.5 g/dL (12.0-16.0); Lymphocytes Absolute Auto 2200 /uL (1100-4500); Lymphocytes Percent Auto 25.5 % (25-40); Mean Corpuscular HGB Conc 34.8 % (30-36); Mean Corpuscular Hemoglobin 30.1 PG (26-34); Mean Corpuscular Volume 86.5 fL (80-100); Monocytes Absolute Auto 600 /uL (0-900); Monocytes Percent Auto 7.4 % (3-14); Neutrophils Absolute Auto 4400 /uL (1500-7000); Neutrophils Percent Auto 50.9 % (50-75); Platelet Count 289 X10^3/uL (150-400); Red Blood Cell Count 4.81 X10^6/uL (4.0-5.2); Red Cell Distribution Width 12.7 % (11.6-14.8); White Blood Cell Count 8.7 X10^3/uL (4.5-11.0)
--- NOTE | 2019-11-06 09:45 | ED_ITS ---
HPI - General Adult General Chief complaint: Abdominal Pain Stated complaint: Upper left side stomach pain.. Time Seen by Provider: 11/06/19 09:19 Source: patient Mode of arrival: Ambulatory Limitations: no limitations History of Present Illness HPI narrative: 24-year-old female. Approximately 1.5 years ago she had a episode of pancreatitis most likely secondary to alcohol use. Since then she has stop drinking. She has not had any issues since then. States that last evening she generally was not feeling very well and did have some sharp left upper quadrant abdominal pain with some nausea no vomiting. Did not try anything for her symptoms. She states that it was similar to her prior episode of pancreatitis. States this morning the symptoms have greatly improved but has not completely resolved. No urinary symptoms. No change in bowel habits. Related Data Home Medications Medication Instructions Recorded Confirmed losartan 25 mg PO DAILY 02/02/19 02/02/19 Previous Rx's Medication Instructions Recorded acetaminophen-codeine 1 tab PO Q4-6H PRN #10 tab 02/02/19 [Tylenol-Codeine #3] cyclobenzaprine 10 mg PO TID PRN #20 tab 02/02/19 Allergies Allergy/AdvReac Type Severity Reaction Status Date / Time banana Allergy Gastrointestinal Verified 11/06/19 09:30 Upset peanut Allergy Hives Verified 11/06/19 09:30 sesame seed Allergy Hives Verified 11/06/19 09:30 Review of Systems Constitutional Constitutional: Denies fever(s) Cardiovascular Cardiovascular: Denies chest pain and Denies dyspnea Respiratory Respiratory: Denies dyspnea Gastrointestinal Gastrointestinal: Reports abdominal pain, Denies change in stool character, Reports nausea and Denies vomiting Genitourinary Genitourinary: Denies dysuria Musculoskeletal Musculoskeletal: Denies back pain, Denies myalgias and Denies arthralgias Integumentary/Breasts Skin/Breast: Denies lesions and Denies rash Neurologic Neurologic: Denies behavioral changes Psychiatric Psychiatric: Denies behavioral changes Hematologic/Lymphatic Hematologic/Lymphatic: Denies easy bleeding and Denies easy bruising Allergic/Immunologic Allergic/Immunologic: Denies urticaria Patient History Medical History Hypertension (Acute) Pancreatitis (Acute) Ruptured ovarian cyst (Acute) Surgical History Fractured fibula (Acute) Social History household members: significant other Smoking Status: Former smoker Smoking Status: Former smoker alcohol intake frequency: other Substance Use Type: does not use Exam Initial Vital Signs Initial Vital Signs: Vital Signs Temperature 98.9 F 11/06/19 09:10 Pulse Rate 79 11/06/19 09:10 Respiratory Rate 14 11/06/19 09:10 Blood Pressure 137/78 11/06/19 09:10 Pulse Oximetry 100 11/06/19 09:10 Const General: cooperative, comfortable and well developed HENMT Head: normal to inspection and normocephalic Resp Effort & Inspection: normal respiratory effort Auscultation: clear to auscultation bilaterally Cardio Rate: regular rate Rhythm: regular rhythm GI Inspection: non-distended Palpation: soft, No firm and tender (Mild tenderness left upper quadrant) Back/Spine/Pelvis Back: No CVA tenderness Skin Lesions: no lesions Rashes: no rashes Neuro General: alert, awake and oriented x3 Extrem General: normal to inspection and full ROM Course Orders Ordered: ED Orders 11/06/19 09:18 EKG-12 Lead Stat 11/06/19 09:25 Complete Blood Count AUTO DIFF Stat Comprehensive Metabolic Panel Stat Lipase Stat Vital Signs Vital signs: Vital Signs - 8 hr 11/06/19 09:10 Temperature 98.9 F Pulse Rate 79 Respiratory Rate 14 Blood Pressure 137/78 Pulse Oximetry 100 Medical Decision Making Lab Data Lab results reviewed: Yes I reviewed the patient's lab results. Result diagrams: 11/06/19 09:25 11/06/19 09:25 Labs: Lab Results 11/06/19 11/06/19 Range/Units 09:25 09:25 WBC 8.7 (4.5-11.0) X10^3/uL RBC 4.81 (4.0-5.2) X10^6/uL Hgb 14.5 (12.0-16.0) g/dL Hct 41.6 (36-46) % MCV 86.5 (80-100) fL MCH 30.1 (26-34) PG MCHC 34.8 (30-36) % RDW 12.7 (11.6-14.8) % Plt Count 289 (150-400) X10^3/uL Neut % (Auto) 50.9 (50-75) % Lymph % (Auto) 25.5 (25-40) % Miner % (Auto) 7.4 (3-14) % Eos % (Auto) 15.6 H (2-4) % Baso % (Auto) 0.6 (0-2) % Neut # (Auto) 4400 (7412-7324) /uL Lymph # (Auto) 2200 (5115-5363) /uL Miner # (Auto) 600 (0-900) /uL Eos # (Auto) 1400 H (0-450) /uL Baso # (Auto) 0 (0-100) /uL Sodium 139 (137-145) mmol/L Potassium 4.2 (3.4-5.1) mmol/L Chloride 109 H (98-107) mmol/L Carbon Dioxide 22 (22-32) mmol/L BUN 16 (7-17) mg/dL Creatinine 0.67 (0.52-1.04) mg/dL Estimated GFR > 60.0 (>60) mL/min BUN/Creatinine Ratio 23.9 H (6-22) Glucose 101 H (70-100) mg/dL Calcium 9.1 (8.4-10.2) mg/dL Total Bilirubin 0.5 (0.2-1.3) mg/dL AST 22 (14-36) IU/L ALT 24 (<35) IU/L Alkaline Phosphatase 80 (38-126) U/L Total Protein 7.3 (6.3-8.2) g/dL Albumin 4.1 (3.5-5.0) g/dL Globulin 3.2 (1.7-4.1) g/dL Albumin/Globulin Ratio 1.3 (1.0-2.8) Lipase 75 (23-300) U/L Point of Care Testing Test Results Negative Urine Dip Bedside Urine Glucose Negative Bedside Urine Bilirubin - Negative Bedside Urine Ketone - Negative Urine Specific Cornucopia 1.015 Bedside Urine Occult Blood ++ Bedside Urine pH 8.0 Bedside Urine Protein - Negative Bedside Urine Urobilinogen - Negative Bedside Urine Nitrite - Negative Bedside Urine Leukocytes - Negative Esterase Point of care testing: Point of Care Testing Test Results Negative Urine Dip Bedside Urine Glucose Negative Bedside Urine Bilirubin - Negative Bedside Urine Ketone - Negative Urine Specific Cornucopia 1.015 Bedside Urine Occult Blood ++ Bedside Urine pH 8.0 Bedside Urine Protein - Negative Bedside Urine Urobilinogen - Negative Bedside Urine Nitrite - Negative Bedside Urine Leukocytes - Negative Esterase ECG Data Attestation: I personally reviewed and interpreted this ECG as follows: Prior ECG tracings: not available for review Interpretation: Sinus rhythm Normal axis Normal QRS Normal QTC No ST T wave changes MDM Narrative Medical decision making narrative: Patient's labs are unremarkable. They are not consistent with pancreatitis. Not consistent with gallbladder pathology. Low suspicion for kidney stone. Low suspicion for pyelonephritis. Low suspicion for zoster there is no skin changes. Low suspicion for other intra- abdominal surgical pathology. Plan will be is to hold on further workup for now. She was given return precautions and follow-up instructions. She expressed understanding and agreement. Discharge Plan Departure Patient Disposition: Home Clinical Impression: Abdominal pain Qualifiers: Abdominal location: left upper quadrant Qualified Code(s): R10.12 - Left upper quadrant pain Instructions: DI for Abdominal Pain-Adult Activity Restrictions/Additional Instructions: Your labs today were not consistent with pancreatitis. Recommend you contact your primary care doctor for follow-up. Return to the emergency department for any new or worsening symptoms Prescriptions: No Action losartan 25 mg tablet 25 mg PO DAILY RF: 0 cyclobenzaprine 10 mg tablet 10 mg PO TID PRN (Reason: muscle spasm) Qty: 20 RF: 0 acetaminophen-codeine [Tylenol-Codeine #3] 300-30 mg tablet 1 tab PO Q4-6H PRN (Reason: pain) Qty: 10 RF: 0
[2019-11-06 09:48] LABS: Alanine Aminotransferase 24 IU/L (<35); Albumin 4.1 g/dL (3.5-5.0); Albumin Globulin Ratio 1.3 (1.0-2.8); Alkaline Phosphatase 80 U/L (38-126); Aspartate Aminotransferase 22 IU/L (14-36); BUN Creatinine Ratio 23.9 (6-22); Bilirubin Total 0.5 mg/dL (0.2-1.3); Blood Urea Nitrogen 16 mg/dL (7-17); Calcium 9.1 mg/dL (8.4-10.2); Carbon Dioxide 22 mmol/L (22-32); Chloride 109 mmol/L (98-107); Estimated Glomerular Filt Rate > 60.0 mL/min (>60); Globulin 3.2 g/dL (1.7-4.1); Glucose 101 mg/dL (70-100); HEMOLYSIS < 15 (0-50); Lipase 75 U/L (23-300); Potassium 4.2 mmol/L (3.4-5.1); Sodium 139 mmol/L (137-145); Total Protein 7.3 g/dL (6.3-8.2)
[2019-11-06 10:27] VITALS: BP 123/70; PULSE 67; RESP 16; O2SAT 100
== END 2019-11-06 10:28 | disposition home or self-care (01) ==
PROVIDERS: Emergency Provider Emergency Medicine
DX: R10.12 Left upper quadrant pain (principal); R11.0 Nausea
CPT/HCPCS: 36415; 80053; 81003; 81025; 83690; 85025; 93005; 99284

== ENCOUNTER → 2020-02-25 09:13 | Outpatient (CLI) | payer BC, SELFPAY ==
[2018-08-14 05:51] VITALS: BMI 34.4
[2020-02-26 07:42] LABS: COVID19 Sendout Not Detected (Not Detect)
== END ==
PROVIDERS: Visit Provider Nurse Practitioner
DX: Z11.59 Encounter for screening for other viral diseases (principal)
CPT/HCPCS: 87635

== ENCOUNTER 2020-02-28 11:53 | Day surgery (SDC) | payer BC, SELFPAY ==
[2018-08-14 05:51] VITALS: BMI 34.4
[2020-02-27 14:57] VITALS: BMI 37.7
[2020-02-28] VITALS (10 sets, daily range): BP systolic 100–138; BP diastolic 64–96; PULSE 64–100; RESP 8–20; TEMP 35.8–36.8; O2SAT 95–99; BMI 34.2
--- NOTE | 2020-02-28 | DI.RAD.S_ITS ---
PROCEDURE: XR ANKLE LT MIN 3V INDICATIONS: SCREW REMOVAL TECHNIQUE: 3 views of the ankle were acquired. COMPARISON: [facility] [place], [place], XR ANKLE 3 VIEWS WEIGHT BEARING LEFT, 08/20/2019, 9:57. [facility], CR, ANKLE 3 VIEWS LEFT, 04/11/2017, 8:46. FINDINGS: Bones: No fractures or dislocations. Screw removal and plate removal involving the distal fibula. Ankle mortise is normally aligned. No suspicious bony lesions. Soft tissues: No tibiotalar joint effusion. Achilles tendon appears normal. IMPRESSION: Removal of all components of prior ORIF of distal fibular fracture. Normal alignment maintained. Dictated by: Barrett Flanagan M.D. on 02/28/2020 at 16:43 Approved by: Barrett Flanagan M.D. on 02/28/2020 at 16:44
[2020-02-28] MEDS: LACTATED RINGERS 1,000 ML 42 ML IV ×2 (12:32→15:36)
--- NOTE | 2020-02-28 13:41 | SUR.OPER ---
Lateral on OR bed on chris bag, head on pillow, gel axillary roll in place, bottom leg bent with gel pad under knee to foot, upper leg straight and supported with pillows. Upper arm supported by pillows and secured over bottom arm to padded arm board. Safety belt at hip, tape over blanket lower legs.
--- NOTE | 2020-02-28 13:51 | PM.PREOP ---
Pre-operative Note COVID-19 COVID-19 status: Negative Result date/Date tested (Pos, Neg/Pending): 02/25/20 Interval Note History & Physical reviewed/Exam performed by Physician: Yes Changes to H&P: No
[2020-02-28] MEDS: CEFAZOLIN 2 GM/100 ML FROZ.PIGGY IV (13:53)
[2020-02-28] MEDS: BUPIVACAINE 0.25% W/ EPI 30 ML VIAL INJ (14:34)
--- NOTE | 2020-02-28 15:28 | PM.OP.1 ---
Operative Date/Time/Diagnoses Date of procedure: 02/28/20 Time of procedure: 14:28 Pre-op diagnosis: Painful left ankle hardware, orthopedic implants Peroneal tendon pain, left Post-op diagnosis: other (Painful retained left ankle implants, peroneal tendon tenosynovitis and low-lying peroneus brevis tendon left) Procedure & Clinicians Procedure: 1. Removal of hardware left ankle fibula CPT code 44546 2. Debridement peroneal tendons and low-lying peroneus brevis muscle belly CPT code 29472 Same procedure as scheduled: Yes Indications: Patient is a 24-year-old female that a previous history of a left fibula fracture that was fixed with an ORIF at an outside institution. Her fracture is been long healed. She has consistent lateral ankle pain over the screw heads and more posterior along the peroneal tendons. She has been indicated for hardware removal as well as exploration of her peroneal tendons. We discussed if no pathology is found that hardware removal would make her a candidate for an MRI scan if needed in the future. However with the retained metal at this time this would be nondiagnostic. The patient would like to proceed with hardware removal and exploration of the peroneal tendons. The risks and benefits of the procedure have been discussed with the patient even opportunity to ask questions. The risks of surgery include but are not limited to infection, malunion, nonunion, persistence of pain, damage to nerves and blood vessels, posttraumatic arthritis, DVT, PE, cardiopulmonary complications and . The patient expressed a thorough understanding of the risks and benefits of surgery and has elected to proceed. Consent was signed in the office. Surgeon: Nahomi Li Anesthesia Type: General and Local Operative Notes Findings: Retained left ankle fibula orthopedic hardware plate and screws and 2 lag screws. These were removed completely. Peroneus brevis and peroneus longus tendons were intact without tears however there was a tenosynovitis around the peroneus brevis and a probe lost low-lying muscle belly that tracked well into the groove. This was debrided decompressing the fibular groove Closure Type: primary Specimen(s): none sent Estimated Blood Loss (mL): 5 Blood products transfused: none Tourniquet time (min): 50 Procedure in detail: Patient was seen in the preoperative area the site of surgery marked informed consent confirmed. The patient was brought back to the operating room by the anesthesia team placed supine on operative table general anesthesia was administered. The patient was then rolled up onto her side with the left leg up on a beanbag. The down leg was well padded. An SCD was on the lower extremity. A axillary roll was placed. A well-padded thigh tourniquet was placed on the operative upper extremity. The left lower extremities prepped and draped in the standard sterile fashion. A formal time-out procedure was performed confirming the patient's side and site of surgery and presence of informed consent and administration of appropriate preoperative antibiotics. All were in agreement. Attention turned to the left leg the previous incision was marked out on the leg. The Esmarch was used for exsanguination the tourniquet elevated to 250 mm of mercury and stayed there for approximately 50 minutes. Sharp dissection with a scalp was taken through the skin soft tissue was open. Dissection was taken directly down to the fibular bone in the lateral plate. Bovie cautery was used to expose the screws and plates. Combination of rongeur and small osteotome further expose the screws were partially covered with bone. Once this was completed screws were removed followed by the plate. The C-arm was brought in for AP and lateral imaging, confirming complete removal of the plate and screws. Then attention turned posteriorly. Peroneal tendon sheath was opened peroneus longus and brevis tendons were explored. There were no gross tearing of the tendons. There was a tenosynovitis from the peroneus brevis very large robust peroneus brevis muscle belly the trial well into the fibular groove. This was followed distally and debrided a decompressing the fibular groove and peroneal tendons. Once this was completed the wound was irrigated and the peroneal tendon sheath was closed with 2 O Vicryl suture. Subcutaneous closure was with 2 O Vicryl and 4 0 Monocryl. The tourniquet was released skin was closed with 3 O nylon suture. Sterile dressing was placed with Xeroform gauze and Webril and an Allan wrap. Patient was then placed into her walking boot. Drapes removed patient was woken from anesthesia and moved to the stretcher and taken to the recovery room in good condition. There no immediate complications from this procedure. Complications: none Post-operative Condition: stable Disposition: same day surgery Plan for aftercare: Weightbear as tolerated in the walking boot. May take the boot off for sleep. Keep dressings clean dry and intact until suture removal in the office in approximately 2 weeks.
[2020-02-28] MEDS: fentaNYL 100 MCG/2 ML INJ IV ×2 (15:33→15:40)
[2020-02-28] MEDS: OXYCODONE IR 5 MG TABLET PO (15:35)
[2020-02-28] MEDS: HYDROMORPHONE 2 MG INJ IV ×4 (15:56→16:09)
--- NOTE | 2020-02-28 17:14 | SUR.PHASEII ---
d/c instruction done by ZAC Lindsey, both voiced an understanding, pt left when ready and lef tin stable condition.
== END 2020-02-28 17:00 | disposition home or self-care (01) ==
PROVIDERS: Referring Provider Orthopaedic Surgery Foot and Ankle Surgery; Visit Provider Orthopaedic Surgery Foot and Ankle Surgery
PROC: (CPT 27680; principal; 2020-02-28 13:15)
DX: T84.84XA Pain due to internal orthopedic prosthetic devices, implants and grafts, initial encounter (principal); M25.572 Pain in left ankle and joints of left foot; M65.862 Other synovitis and tenosynovitis, left lower leg; E66.9 Obesity, unspecified; F17.210 Nicotine dependence, cigarettes, uncomplicated
CPT/HCPCS: 27680; 20680; 73610; 76000; J0690; J1100; J1170; J2405; J2704; J3010